=== PATIENT | female | born 1980 | race Caucasian/White ===

== ENCOUNTER → 2017-01-10 | Outpatient (CLI) | payer BC | END | disposition home or self-care (01) | LOC: C.PAPS 11:51 | PROVIDERS: ATTEND Obstetrics & Gynecology | DX: Z01.419 Encounter for gynecological examination (general) (routine) without abnormal findings (principal); R87.615 Unsatisfactory cytologic smear of cervix ==

== ENCOUNTER 2017-12-09 11:48 | Emergency (ER) | payer BC, OTHER ==
[~2017-12-09] VITALS: Ht 154.9 cm; Wt 56.6 kg
[2017-12-09 11:50] VITALS: TEMP 37; Ht 154.9 cm; Wt 56.6 kg
[2017-12-09 12:49] LABS: BASO % 0.2 %; BASO ABS # 0.02 K/uL (0-0.2); EOS % 0.5 %; EOS ABS # 0.04 K/uL (0-0.5); HEMATOCRIT 43.2 % (37-47); HEMOGLOBIN 15.1 g/dL (12.0-16.0); IG# 0.03 K/uL (0.00-0.02); LYMPH % 8.9 %; LYMPH ABS # 0.74 K/uL (1.2-3.4); MEAN CELL VOLUME 93.3 fL (80-100); MEAN CORPUSCULAR HEMOGLOBIN 32.6 pg (25-34); MEAN PLATELET VOLUME 10.4 fL (7.4-10.4); MONO ABS # 0.58 K/uL (0.11-0.59); NEUT ABS # 6.92 K/uL (1.4-6.5); PLATELET COUNT 250 K/uL (130-400); RED CELL DISTRIBUTION WIDTH CV 12.6 % (11.5-14.5); RED CELL DISTRIBUTION WIDTH SD 42.4 fL (36.4-46.3); WHITE BLOOD COUNT 8.33 K/uL (4.8-10.8)
--- NOTE | 2017-12-09 12:54 | DIAGNOSTIC IMAGING REPORT ---
HEAD WITHOUT CONTRAST (CT) CLINICAL HISTORY: 37 years-old Female with dizziness. Acute dizziness TECHNIQUE: Multiple axial CT images of the head were obtained without contrast. A dose lowering technique was utilized adhering to the principles of ALARA. CT DOSE: 537.48 mGy.cm COMPARISON: None. FINDINGS: No acute intracranial hemorrhage, midline shift, intracranial mass, hydrocephalus, territorial ischemia or abnormal extra-axial collection. The calvarium is intact. The paranasal sinuses, mastoid air cells, and middle ear cavities are clear. IMPRESSION: No acute intracranial abnormality. The above report was generated using voice recognition software. It may contain grammatical, syntax or spelling errors. Electronically signed by: Rick Jackson M.D. 12/09/2017 12:53 PM Dictated Date/Time: 12/09/2017 12:51 PM
[2017-12-09 13:17] LABS: CALCIUM 9.5 mg/dl (8.5-10.1); CREATININE 0.98 mg/dl (0.60-1.20); POTASSIUM 3.5 mmol/L (3.5-5.1)
[2017-12-09] MEDS ORDERED: FLUO10CA48 PO (14:05)
[2017-12-09] MEDS ORDERED: FLUT0.15 (14:05)
[2017-12-09] MEDS ORDERED: MONT1TAB3 PO (14:05)
[2017-12-09] MEDS ORDERED: PRENTAB PO (14:05)
[2017-12-09] MEDS ORDERED: CETI5TAB5 PO (14:05)
[2017-12-09 14:20] VITALS: BP 98/60; PULSE 104; O2SAT 96
--- NOTE | 2017-12-10 18:57 | EMERGENCY ROOM VISIT NOTE ---
History First contact with patient: 12:00 Chief Complaint: VERTIGO Stated Complaint: SINUS CONGESTION,DIZZINESS,TIRED Nursing Triage Summary: "I have really bad sinus issues. My ears have been bothering me more than normal. at the gym I got so dizzy I collapsed. I didn't loose consciousness." Recommended to go to ENT by pcp on Sunday. Symptoms for a week include sinus pressure, dizziness, poor appetite, "I just can't do anything." Diagnosed with acute vertigo on Sunday by pcp. History of Present Illness The patient is a 37 year old white female who presents to the Emergency Room with complaints of severe dizziness that began on . She states she was at the gym and was running on the treadmill. She got off the treadmill and became severely dizzy. She did fall. There was no loss of consciousness. She states she then vomited for approximately 1 hour. She denies striking her head. She was seen by her PCP on Sunday for continued dizziness. They did recommend ENT evaluation. She has an appointment this coming week. She was diagnosed with acute vertigo on Sunday by her PCP. She feels as though she has significant sinus pain and pressure. She states her ears have been bothering her more than normal. She notes poor appetite. She feels she cannot get up off the couch without becoming dizzy. She states she had difficulty walking into the ER from the parking lot due to the dizziness. She was prescribed meclizine but has not filled it. No prior history of similar dizziness. She denies any history of thyroid issues. Review of Systems REVIEW OF SYSTEM: HEENT: No visual problems, hearing loss, or tinnitus. There is no difficulty swallowing and no oral lesions are present. LYMPH: No adenopathy. PULMONARY: No cough, shortness of breath, sputum production or hemoptysis. CARDIOVASCULAR: No chest pain, palpitations, shortness of breath or peripheral edema. GASTROINTESTINAL: No diarrhea, constipation, or abdominal pain. GENITOURINARY: No dysuria, frequency, urgency or nocturia. NEUROLOGIC: No weakness, muscle tenderness, epilepsy or history of neurological problems. MUSCULOSKELETAL: No history of joint tenderness/swelling. No history of arthritis or arthralgias. SKIN: No rashes or lesions. PSYCHIATRIC: Positive history of anxiety. ENDOCRINE: No history of diabetes, thyroid disorders, or abnormal hair growth. Past Medical/Surgical History Medical Problems: (1) Anxiety Family History Noncontributory. Parents are living. Social History Smoking Status: Never Smoker Smokeless Tobacco Use: No Alcohol Use: occasionally Marital Status: single Housing Status: lives alone Occupation Status: employed Current/Historical Medications Scheduled Cetirizine Hcl (Zyrtec), 5 MG PO DAILY Montelukast Sodium (Singulair), 1 TAB PO DAILY Vit W/ Ferrous Fumara (Multi ), 1 TAB PO DAILY Miscellaneous Medications Fluoxetine (Prozac), 10 MG PO Fluticasone Propionate (Nasal) (Flonase Allergy Relief) Physical Exam Vital Signs Date Time Temp Pulse Resp B/P (MAP) Pulse Ox O2 Delivery O2 Flow Rate FiO2 12/09/17 14:20 104 18 98/60 96 12/09/17 13:36 103 18 96/58 100 Room Air 12/09/17 11:50 37.0 101 16 108/64 98 Room Air Physical Exam General: Well-developed, well-nourished, young white female, in no acute distress. Sitting on a bed. Alert and oriented. Skin: Warm and dry with good turgor. No rashes or lesions. No ecchymosis or erythema. The patient is not diaphoretic. No abrasions. HEENT: Normocephalic atraumatic. Eyes PERRLA, EOMI. No conjunctiva or scleral injection. Mild nystagmus when looking to the left. No nystagmus when looking to the right. Ears TMs intact bilaterally with good light reflexes. No erythema or bulging. No hemotympanum. Canals are patent. Nares patent bilaterally without turbinate enlargement. No significant drainage. No epistaxis. Oropharynx without erythema or exudate. Uvula midline, oral mucosa moist. No lesions present. Lymphatics are palpated without anterior or posterior chain enlargement or tenderness. Heart: Heart RRR. No MGR. Peripheral pulses are 2+. Lungs: Lungs are clear to auscultation. No crackles rhonchi or wheezing. Good air movement. The patient is able to take a deep breath. Abdomen: Abdomen was inspected, auscultated, and palpated. Bowel sounds present x 4. Soft, nontender to palpation. No hepato-splenomegaly. No masses noted. No rebound. Musculoskeletal: Gross motor function of the upper and lower extremities is intact and unremarkable. No discomfort with palpation over the cervical spine. Neurologic: Cranial nerves II through XII are intact. Gross sensation is intact across the upper and lower extremities by soft touch. Normal finger to nose, normal pronator drift, and normal Romberg. Medical Decision & Procedures ER Provider Diagnostic Interpretation: CT scan imaging of the head was obtained. This was read by radiology is unremarkable. This was reviewed by me. Laboratory Results 12/09/17 12:35 Red Blood Count 4.63, Mean Corpuscular Volume 93.3, Mean Corpuscular Hemoglobin 32.6, Mean Corpuscular Hemoglobin Concent 35.0, Mean Platelet Volume 10.4, Neutrophils (%) (Auto) 83.0, Lymphocytes (%) (Auto) 8.9, Monocytes (%) (Auto) 7.0, Eosinophils (%) (Auto) 0.5, Basophils (%) (Auto) 0.2, Neutrophils # (Auto) 6.92, Lymphocytes # (Auto) 0.74, Monocytes # (Auto) 0.58, Eosinophils # (Auto) 0.04, Basophils # (Auto) 0.02 12/09/17 12:35 Test 12/09/17 12:35 White Blood Count 8.33 K/uL (4.8-10.8) Red Blood Count 4.63 M/uL (4.2-5.4) Hemoglobin 15.1 g/dL (12.0-16.0) Hematocrit 43.2 % (37-47) Mean Corpuscular Volume 93.3 fL (80-100) Mean Corpuscular Hemoglobin 32.6 pg (25-34) Mean Corpuscular Hemoglobin Concent 35.0 g/dl (32-36) Platelet Count 250 K/uL (130-400) Mean Platelet Volume 10.4 fL (7.4-10.4) Neutrophils (%) (Auto) 83.0 % Lymphocytes (%) (Auto) 8.9 % Monocytes (%) (Auto) 7.0 % Eosinophils (%) (Auto) 0.5 % Basophils (%) (Auto) 0.2 % Neutrophils # (Auto) 6.92 K/uL (1.4-6.5) Lymphocytes # (Auto) 0.74 K/uL (1.2-3.4) Monocytes # (Auto) 0.58 K/uL (0.11-0.59) Eosinophils # (Auto) 0.04 K/uL (0-0.5) Basophils # (Auto) 0.02 K/uL (0-0.2) RDW Standard Deviation 42.4 fL (36.4-46.3) RDW Coefficient of Variation 12.6 % (11.5-14.5) Immature Granulocyte % (Auto) 0.4 % Immature Granulocyte # (Auto) 0.03 K/uL (0.00-0.02) Urine Color DK YELLOW Urine Appearance CLOUDY (CLEAR) Urine pH 5.5 (4.5-7.5) Urine Specific [place] 1.027 (1.000-1.030) Urine Protein 1+ (NEG) Urine Glucose (UA) NEG (NEG) Urine Ketones TRACE (NEG) Urine Occult Blood 3+ (NEG) Urine Nitrite NEG (NEG) Urine Bilirubin NEG (NEG) Urine Urobilinogen NEG (NEG) Urine Leukocyte Esterase MODERATE (NEG) Urine WBC (Auto) 10-30 /hpf (0-5) Urine RBC (Auto) 0-4 /hpf (0-4) Urine Hyaline Casts (Auto) 1-5 /lpf (0-5) Urine Epithelial Cells (Auto) >30 /lpf (0-5) Urine Bacteria (Auto) 1+ (NEG) Urine Crystals CALCIUM OXALATE (NONE Urine Pathogenic Casts /lpf (0) Urine Mucus PRESENT (NONE PRSENT) Urine Test NEG (NEG) Anion Gap 9.0 mmol/L (3-11) Est Creatinine Clear Calc Drug Dose 60.4 ml/min Estimated GFR () 86.6 Estimated GFR (Non- 74.7 BUN/Creatinine Ratio 14.0 (10-20) Calcium Level 9.5 mg/dl (8.5-10.1) Thyroid Stimulating Hormone (TSH) 1.030 uIu/ml (0.300-4.500) Free Thyroxine 1.19 ng/dl (0.80-1.60) CBC, PRP, TSH, free T4, and UA were obtained. Urine was also obtained and is negative. TSH and free T4 are normal. CBC is unremarkable. PRP is unremarkable. UA shows trace ketones, moderate leukocyte esterase, greater than 30 epithelials, mucus, and calcium oxalate. ED Course Patient was educated regarding today's findings. Conservative care measures were discussed. IV was established. Labs were obtained. CT scan imaging of the head was obtained. Patient was able to sit up and maintain her balance. She stated she felt a little dizzy but was improved. I did recommend that she obtain the meclizine and start taking it as directed. Follow-up with ENT as scheduled. Return to the ED for any acute worsening of symptoms. Maintain hydration. Avoid any vigorous physical activity until reevaluated by ENT. Medical Decision Possibility of intracranial mass, intracranial bleed, electrolyte abnormality, anemia, infection, inner ear infection, sinus infection, BPV, Mnire's disease , and thyroid disease were considered among others. Medication Reconcilliation Current Medication List: was personally reviewed by me Blood Pressure Screening Patient's blood pressure: Normal blood pressure Impression Primary Impression: Vertigo Departure Information Dispostion Home / Self-Care Condition GOOD Referrals Chico Lowery MD Forms WORK / SCHOOL INSTRUCTIONS, HOME CARE DOCUMENTATION FORM, IMPORTANT VISIT INFORMATION Patient Instructions My [facility] Additional Instructions Follow-up with your ENT as scheduled Fill the Antivert prescription and take it as directed Maintain hydration Avoid vigorous physical exercise until evaluated by ENT Return to the ED for any other concerns
== END 2017-12-09 14:20 | disposition home or self-care (01) ==
LOC: C.EDB 11:49
DX: R42 Dizziness and giddiness (principal); Z86.59 Personal history of other mental and behavioral disorders

== ENCOUNTER 2019-07-03 20:26 | Inpatient (IN) ==
[2019-07-03 21:14] LABS: Appearance Urine Clear (Clear); Bacteria Urine Automated 2+ (Negative); Bilirubin Urine Negative (Negative); Blood Urine Negative (Negative); Color Urine Yellow; Epithelial Cell Urine Auto 20-30 /lpf (0-5); Glucose Urine UA 1+ (Negative); Ketones Urine Negative (Negative); Leukocyte Esterase Urine 1+ (Negative); Nitrite Urine Negative (Negative); Protein Urine Negative (Negative); Specific Gravity Urine 1.019 (1.000-1.030); Urobilinogen Urine Negative (Negative); pH Urine 6.5 (4.5-7.5)
--- NOTE | 2019-07-03 21:19 | Emergency Department Note ---
History of Present Illness General Chief Complaint: Mental Health Evaluation Stated Complaint: DEPRESSION, ANGER ISSUES Time Seen by Provider: 07/03/19 20:41 Source: patient and other (Boyfriend) Mode of arrival: ambulatory Limitations: no limitations History of Present Illness Provider complaint: suicidal ideation and feels depressed Onset (ago): day(s) 3 Duration: constant Relieved By: + none Exacerbated By: + other (Not able to go to work because of the status of her work due to the current coronavirus. (She does not have it. )) Context: + significant life stressor (Patient was recently diagnosed with neurosarcoidosis in April but has had the symptoms for about a year.); no recent alcohol abuse Associated psychiatric symptoms: + depression, + suicidal ideation and + other (Anger, anxiety) Associated symptoms: no headache, no nausea and no syncope Treatments prior to arrival: + none If self harm: + admits thoughts of self harm and + has plan; no has acted on plan, no intentional overdose and no self-inflicted trauma Details of plan: milliner helper traffic Home Medications Home Medications Medication Instructions Recorded Confirmed Type cholecalciferol (vitamin D3) 5,000 unit PO DAILY 09/25/18 07/03/19 History [Vitamin D3] norgestimate-ethinyl estradiol 1 tab PO HS 11/14/18 07/03/19 History mecobalamin (vitamin B12) 1,000 1,000 mcg SL DIRECTED 12/02/18 07/03/19 History mcg disintegrating tablet,sublingual infliximab 100 mg intravenous See Rx Instructions IV ONCE #3 ea 05/29/19 07/03/19 Rx solution escitalopram oxalate 20 mg PO QAM 30 Days #30 tab 06/05/19 07/03/19 Rx hydroxyzine HCl 50 mg PO HS PRN 30 Days #30 tab 06/05/19 07/03/19 Rx prednisone 10 mg tablet 40 mg PO DAILY 06/20/19 07/03/19 History propranolol 20 mg tablet 20 mg PO BID 06/20/19 07/03/19 History pantoprazole 20 mg tablet,delayed 20 mg PO DAILY #30 tab 07/02/19 07/03/19 Rx release calcium carbonate [Calcium 500] 500 mg PO DAILY 07/03/19 07/03/19 History hydroxyzine HCl 25 mg PO DAILY PRN 07/03/19 07/03/19 History omega 9-qph-[id number]-fish oil [Fish Oil] 1 cap PO DAILY 07/03/19 07/03/19 History Allergies Allergy/AdvReac Type Severity Reaction Status Date / Time [facility] AdvReac Unknown Verified 07/03/19 22:12 Past Med/Surg History Medical History Allergic rhinitis (Chronic) Anxiety (Chronic) Benzodiazepine abuse 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 Beliefs That Will Affect Care: None Current Living Situation: Significant Other Feels Safe at Home: Yes Smoking Status: Never smoker Second Hand Exposure: No ; Hx Alcohol Use: Yes Alcohol type: wine Hx Substance Use: No Review of Systems A total of 10 systems reviewed and were otherwise negative Physical Exam Vital Signs Vital Signs - 24 hr 07/03/19 20:27 07/03/19 23:00 Temperature 36.6 C Temperature Source Oral Pulse Rate 82 Pulse Rate [Finger] 75 Respiratory Rate 16 18 Respiratory Effort / Characteristics Non-Labored Spontaneous Non-Labored Spontaneous Respiratory Depth Normal Normal Blood Pressure 119/84 Blood Pressure [Right Arm] 129/87 Blood Pressure Mean 95 Blood Pressure Mean [Right Arm] 101 Pulse Oximetry 98 98 Oxygen Delivery Method Room Air Room Air Sepsis Recent Fever Within 48 Hours No Sepsis New/Unexplained Change in Mental Status No Sepsis Action Taken by Nursing No Action Required CONSTITUTIONAL/VITAL SIGNS: Reviewed / noted above. GENERAL: Non-toxic in appearance. INTEGUMENTARY: Warm, dry, and [place]. HEAD: Normocephalic. EYES: without scleral icterus or trauma. ENT/OROPHARYNX: clear and moist. LYMPHADENOPATHY/NECK: Is supple without lymphadenopathy or meningismus. RESPIRATORY: Lungs clear and equal. CARDIOVASCULAR: Regular rate and rhythm. GI/ABDOMEN: Soft and nontender. No organomegaly or pulsatile mass. No rebound or guarding. Normal bowel sounds. EXTREMITIES: Warm and well perfused. BACK: No CVA tenderness. NEUROLOGICAL: Intact without focal deficits. PSYCHIATRIC: normal affect. Suicidal ideation. MUSCULOSKELETAL: Normally developed with good muscle tone. TRIAGE NURSING DOCUMENTATION REVIEWED. Medical Decision Making Differential Diagnosis + acute psychosis, + suicidal ideation, + depression, + drug-induced psychotic disorder, + anxiety, + mood disorder, + electrolyte abnormalities and + maame rologic Medical Records Attestation: I reviewed the patient's medical records. Home Medications Current Medication List: was personally reviewed by me Laboratory Data Attestation: I reviewed the patient's lab results. Result diagrams: 07/03/19 21:17 07/03/19 21:17 Lab Results 07/03/19 07/03/19 07/03/19 Range/Units 20:57 20:57 21:17 WBC 9.66 (4.8-10.8) K/uL RBC 4.26 (4.2-5.4) M/uL Hgb 13.4 (12.0-16.0) g/dL Hct 40.0 (37-47) % MCV 93.9 (80-100) fL MCH 31.5 (25-34) pg MCHC 33.5 (32-36) g/dL RDW Std Deviation 46.1 (36.4-46.3) fL RDW Coeff of Sharon 13.5 (11.5-14.5) % Plt Count 234 (130-400) K/uL MPV 9.7 (7.4-10.4) fL Immature Gran % (Auto) 0.4 % Neut % (Auto) 79.7 % Lymph % (Auto) 14.2 % Archer % (Auto) 5.5 % Eos % (Auto) 0.0 % Baso % (Auto) 0.2 % Immature Gran # (Auto) 0.04 H (0.00-0.02) K/uL Neut # (Auto) 7.70 H (1.4-6.5) K/uL Lymph # (Auto) 1.37 (1.2-3.4) K/uL Archer # (Auto) 0.53 (0.11-0.59) K/uL Eos # (Auto) 0.00 (0-0.5) K/uL Baso # (Auto) 0.02 (0-0.2) K/uL Sodium (136-145) mmol/L Potassium (3.5-5.1) mmol/L Chloride (98-107) mmol/L Carbon Dioxide (21-32) mmol/L Anion Gap (3-11) BUN (7-18) mg/dl Creatinine (0.6-1.2) mg/dl Est Cr Clr Drug Dosing ml/min Est GFR ( Amer) Est GFR (Non-Af Amer) BUN/Creatinine Ratio (10-20) Glucose (70-99) mg/dl Calcium (8.5-10.1) mg/dl Total Bilirubin (0.2-1) mg/dl AST (15-37) U/L ALT (12-78) U/L Alkaline Phosphatase (45-117) U/L Total Protein (6.4-8.2) gm/dl Albumin (3.4-5.0) gm/dl Globulin (2.5-4.0) gm/dl Albumin/Globulin Ratio (0.9-2) TSH (0.300-4.500) uIu/ml Specimen Hemolysis Urine Color Yellow Urine Appearance Clear (Clear) Urine pH 6.5 (4.5-7.5) Ur Specific [place] 1.019 (1.000-1.030) Urine Protein Negative (Negative) Urine Glucose (UA) 1+ H (Negative) Urine Ketones Negative (Negative) Urine Blood Negative (Negative) Urine Nitrite Negative (Negative) Urine Bilirubin Negative (Negative) Urine Urobilinogen Negative (Negative) Ur Leukocyte Esterase 1+ H (Negative) Urine WBC (Auto) 5-10 H (0-5) /hpf Urine RBC (Auto) 5-10 H (0-4) /hpf U Hyaline Cast (Auto) 1-5 (0-5) /lpf U Epithel Cells (Auto) 20-30 H (0-5) /lpf Urine Bacteria (Auto) 2+ H (Negative) Salicylates (2.8-20) mg/dl Urine Opiates Screen Neg (Neg) Ur Methadone, Qual Neg (Neg) Acetaminophen (10-30) ug/ml Urine Barbiturates Neg (Neg) Ur Phencyclidine (PCP) Neg (Neg) U Amphetamin/Meth Scrn Neg (Neg) MDMA (Ecstasy) Screen Neg (Neg) U Benzodiazepines Scrn Neg (Neg) Ur Cocaine Metabolite Neg (Neg) U Marijuana (THC) Screen Pos H (Neg) Ethyl Alcohol mg/dL (0-3) mg/dl 07/03/19 07/03/19 07/03/19 Range/Units 21:17 21:17 21:17 WBC (4.8-10.8) K/uL RBC (4.2-5.4) M/uL Hgb (12.0-16.0) g/dL Hct (37-47) % MCV (80-100) fL MCH (25-34) pg MCHC (32-36) g/dL RDW Std Deviation (36.4-46.3) fL RDW Coeff of Sharon (11.5-14.5) % Plt Count (130-400) K/uL MPV (7.4-10.4) fL Immature Gran % (Auto) % Neut % (Auto) % Lymph % (Auto) % Archer % (Auto) % Eos % (Auto) % Baso % (Auto) % Immature Gran # (Auto) (0.00-0.02) K/uL Neut # (Auto) (1.4-6.5) K/uL Lymph # (Auto) (1.2-3.4) K/uL Archer # (Auto) (0.11-0.59) K/uL Eos # (Auto) (0-0.5) K/uL Baso # (Auto) (0-0.2) K/uL Sodium 137 (136-145) mmol/L Potassium 4.0 (3.5-5.1) mmol/L Chloride 103 (98-107) mmol/L Carbon Dioxide 27 (21-32) mmol/L Anion Gap 7.0 (3-11) BUN 17 (7-18) mg/dl Creatinine 0.85 (0.6-1.2) mg/dl Est Cr Clr Drug Dosing 76.5 ml/min Est GFR ( Amer) 102.2 Est GFR (Non-Af Amer) 88.2 BUN/Creatinine Ratio 19.9 (10-20) Glucose 128 H (70-99) mg/dl Calcium 9.3 (8.5-10.1) mg/dl Total Bilirubin 0.3 (0.2-1) mg/dl AST 23 (15-37) U/L ALT 47 (12-78) U/L Alkaline Phosphatase 49 (45-117) U/L Total Protein 7.7 (6.4-8.2) gm/dl Albumin 3.7 (3.4-5.0) gm/dl Globulin 4.0 (2.5-4.0) gm/dl Albumin/Globulin Ratio 0.9 (0.9-2) TSH 0.305 (0.300-4.500) uIu/ml Specimen Hemolysis Urine Color Urine Appearance (Clear) Urine pH (4.5-7.5) Ur Specific [place] (1.000-1.030) Urine Protein (Negative) Urine Glucose (UA) (Negative) Urine Ketones (Negative) Urine Blood (Negative) Urine Nitrite (Negative) Urine Bilirubin (Negative) Urine Urobilinogen (Negative) Ur Leukocyte Esterase (Negative) Urine WBC (Auto) (0-5) /hpf Urine RBC (Auto) (0-4) /hpf U Hyaline Cast (Auto) (0-5) /lpf U Epithel Cells (Auto) (0-5) /lpf Urine Bacteria (Auto) (Negative) Salicylates < 1.7 L (2.8-20) mg/dl Urine Opiates Screen (Neg) Ur Methadone, Qual (Neg) Acetaminophen < 2 L (10-30) ug/ml Urine Barbiturates (Neg) Ur Phencyclidine (PCP) (Neg) U Amphetamin/Meth Scrn (Neg) MDMA (Ecstasy) Screen (Neg) U Benzodiazepines Scrn (Neg) Ur Cocaine Metabolite (Neg) U Marijuana (THC) Screen (Neg) Ethyl Alcohol mg/dL < 3.0 (0-3) mg/dl Blood Pressure Blood Pressure Findings: Normal blood pressure MDM Narrative The patient presents with her boyfriend with a chief complaint of 3 days of not feeling herself. She has been having intense anger, anxiety and suicidal thoughts. Today she was crossing the street with her boyfriend and stated that she felt like to standing in the street letting her self get hit by car. The p atient states that she was diagnosed with neurosarcoidosis in April. She has had the symptoms for a year. She was started on Remicade which she takes every 4 weeks and prednisone daily. She has not had any medication changes for over a month. She has been feeling resistant to taking her medications because she feels hopeless. She is sleeping more than usual. The coronavirus quarantine issues have also caused her to become more depressed because she is not able to go to work where she feels like she has good coworkers. Her psychologist suggested she come in for evaluation. She missed an appointment with the mental health services today because she had an MRI scheduled and this was in conflict with her appointment with [facility]. The patient would like to be admitted voluntarily. The patient's laboratory studies including a CBC and complete metabolic panel as well as TSH and talk screen and alcohol were all negative or normal other than a urine tox was positive for marijuana. The patient was accepted to [facility] for admission. Impression & Plan Depression, Suicidal thoughts Discharge Plan Visit Data Chief Complaint: Mental Health Evaluation Stated Complaint: DEPRESSION, ANGER ISSUES ED Provider: Michael Solis Discharge Problem: Depression, Suicidal thoughts Forms Stand Alone Forms: [facility], Suicide Prevention Resources Prescriptions Prescriptions: No Action Remicade 100 mg recon soln See Rx Instructions IV ONCE Qty: 3 RF: 7 pantoprazole [Protonix] 20 mg tablet,delayed release (DR/EC) 20 mg PO DAILY Qty: 30 RF: 5 norgestimate-ethinyl estradiol [Tri Femynor] 0.18/0.215/0.25 mg-35 mcg (28) tablet 1 tab PO HS RF: 0 propranolol 20 mg tablet 20 mg PO BID RF: 0 prednisone 10 mg tablet 40 mg PO DAILY RF: 0 mecobalamin (vitamin B12) 1,000 mcg tablet,disintegrating 1,000 mcg SL DIRECTED RF: 0 cholecalciferol (vitamin D3) [Vitamin D3] 5,000 unit Tablet 5,000 unit PO DAILY RF: 0 escitalopram oxalate 20 mg Tablet 20 mg PO QAM 30 Days Qty: 30 RF: 0 hydroxyzine HCl 50 mg tablet 50 mg PO HS PRN (Reason: insomnia) 30 Days Qty: 30 RF: 0 calcium carbonate [Calcium 500] 500 mg calcium (1,250 mg) Tablet 500 mg PO DAILY RF: 0 hydroxyzine HCl 25 mg Tablet 25 mg PO DAILY PRN (Reason: mood swings) RF: 0 omega 8-[id number]-fish oil [Fish Oil] 1,000 mg (120 mg-180 mg) Capsule 1 cap PO DAILY RF: 0 Discharge Problem: Depression Qualifiers: Depression Type: unspecified Qualified Code(s): F32.9 - Major depressive disorder, single episode, unspecified
[2019-07-03 21:28] LABS: Amphetamines+Metham, Urine Neg (Neg); Barbiturates, Urine Neg (Neg); Benzodiazepine, Urine Neg (Neg); Cocaine, Urine Neg (Neg); MDMA (Ecstacy), Urine Neg (Neg); Methadone, Urine Neg (Neg); Opiate, Urine Neg (Neg); Phencyclidine, Urine Neg (Neg)
[2019-07-03 21:32] LABS: Basophils # (auto) 0.02 K/uL (0-0.2); Basophils % (auto) 0.2 %; Hemoglobin 13.4 g/dL (12.0-16.0); Immature Granulocytes # (auto) 0.04 K/uL (0.00-0.02); Immature Granulocytes % (auto) 0.4 %; Lymphocytes # (auto) 1.37 K/uL (1.2-3.4); Lymphocytes % (auto) 14.2 %; Mean Corpuscular Hemoglobin 31.5 pg (25-34); Mean Corpuscular Hgb Conc 33.5 g/dL (32-36); Mean Corpuscular Volume 93.9 fL (80-100); Mean Platelet Volume 9.7 fL (7.4-10.4); Monocytes # (auto) 0.53 K/uL (0.11-0.59); Monocytes % (auto) 5.5 %; Neutrophils % (auto) 79.7 %; Platelet Count 234 K/uL (130-400); RDW Coefficient of Variation 13.5 % (11.5-14.5); RDW Standard Deviation 46.1 fL (36.4-46.3); Red Blood Count 4.26 M/uL (4.2-5.4); White Blood Count 9.66 K/uL (4.8-10.8)
[2019-07-03 21:49] LABS: Albumin Level 3.7 gm/dl (3.4-5.0); BUN Creatinine Ratio 19.9 (10-20); Calcium 9.3 mg/dl (8.5-10.1); Creatinine Clr Calc Pharmacy 76.5 ml/min; Est GFR (African American) 102.2; Est GFR (Non-African American) 88.2
[2019-07-03 21:56] LABS: Acetaminophen < 2 ug/ml (10-30); Salicylate < 1.7 mg/dl (2.8-20)
[2019-07-03 22:00] LABS: Albumin Globulin Ratio 0.9 (0.9-2); Bilirubin,Total 0.3 mg/dl (0.2-1); Thyroid Stimulating Hormone 0.305 uIu/ml (0.300-4.500); Total Protein 7.7 gm/dl (6.4-8.2)
[2019-07-04 01:37] VITALS: O2SAT 99
[2019-07-04] MEDS ORDERED: ALUMINUM/MAGNESIUM SUSP 30 ML UDC PO PRN (01:46)
[2019-07-04] MEDS ORDERED: BISMUTH SUBSALICYLATE PER ML OMNICELL CHARGE PO PRN (01:46)
[2019-07-04] MEDS ORDERED: MAGNESIUM HYDROXIDE SUSP 30 ML UDC PO PRN (01:46)
[2019-07-04] MEDS ORDERED: ACETAMINOPHEN 325 MG TAB PO PRN (01:46)
[2019-07-04] MEDS ORDERED: SODIUM CHLORIDE 0.65% NA SOLN 45 ML (OCEAN) PRN (01:46)
[2019-07-04] MEDS: PROPRANOLOL HCL 20 MG TAB PO SCH ×3 (02:52→21:32)
[2019-07-04] MEDS: PATIENT'S OWN ORAL CONTRACEPTIVE PO SCH ×2 (06:34→21:37)
--- NOTE | 2019-07-04 08:57 | History & Physical ---
Date of Service July 04, 2019 Impression / Recommendations Impression 38-year-old female admitted voluntarily for inpatient psychiatric treatment due to worsening anxiety, hopelessness, and reported increase in mood instability (anger, irritability) over the past week. Pt admits that her hopelessness has often led to In the context of difficulty coping with a recent neurosarcoidosis diagnosis, she felt she was unsafe outside of the inpatient psychiatric setting to deal with these symptoms on her own. Pt and boyfriend did seek advice from her outpatient providers, who suggested patient present for mental health evaluation. Specifically, patient was encouraged to present to the ED after a scheduled therapy (tele-therapy) appointment the evening of her eventual admission. Pt does believe that a great deal of her heightened anxiety and mood instability is related to recent events concerning the COVID-19 outbreak. 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 Pt has continued escitalopram 20mg and does feel the medication has been effective. She does report recent sexual side effects, but is agreeable with continuing the medication at this time. We discussed treatment options to target decreased libido down the road of these symptoms persist. Pt wishing to continue hydroxyzine as needed for anxiety, and scheduled for sleep. We did discuss the potential to initiate a mood stabilization agent as an adjunct to her antidepressant if irritability and mood instability should persist; however, it was recommended that we wait on this until the pattern of these moods can be better observed - lamotrigine was specifically discussed, would not pursue without reviewing with neurology. At this time, patient denies active SI but is unable to contract for safety outside of the hospital setting - she continues to report severe hopelessness and desire to be . Will focus treatment on therapeutic intervention at present, and work with patient to develop and safe discharge plan. Until this can be accomplished, inpatient psychiatric treatment is the least restrictive and most appropriate setting to work toward these goals. Dr. Deshaun Hi was directly involved in review and discussion of the patient's case and participated in medical decision making regarding treatment recommendations. (1) Suicidal thoughts: 07/03 - Admitted to a locked inpatient behavioral health unit, on q15 minute safety checks - Encourage medication initiation/adjustments as indicated - Encourage participation in group and recreational therapies - Gather collateral information from outpatient providers - Suggest family meeting to involve outpatient supports in safety planning - Arrange appropriate aftercare (2) Anxiety: 07/03 - Pt admits to anxiety, likely significantly exacerbated by concerns surrounding the COVID-19 outbreak and her chronic neurological illness - Pt reporting worsening of anxiety and depression over the last week which has been contributing to hopelessness and passive thoughts - Pt agreeable with this visit offering primarily therapeutic intervention - as she admits that most of her present stressors are situational and have only been occurring for the past week - Will continue escitalopram 20mg daily and prn hydroxyzine; will schedule HS hydroxyzine as patient reports this is how she has been taking it at home - Will encourage attendance of group and recreational programming; encourage 1:1 sessions as desired/indicated to process recent stressors - Discussed need to develop a daily/weekly routine that will help support the patient during this time of working from home - Coordinate with outpatient therapist; confirm [facility] intake for July - pt stating she had to reschedule this appointment due to prioritizing her MRI yesterday - Encourage patient to work on a detailed safety plan - Family meeting to involve outpatient supports in discharge and safety planning (3) Depression: 07/03 - Pt admits to worsening of depressive symptoms and more chronic hopelessness in the last week - see treatment recommendations for "anxiety" as above - Continue escitalopram 20mg daily; pt does report noticeably decreased libido in the past 2-3 weeks - she was asked to continue to monitor - We did discuss her mood fluctuations. Will not plan to initiate a new medication presently, as these changes have only been persisting for the past week. We did discuss the possibility of lamotrigine or alternative mood stabilization agent as an adjunct to her depression treatment regimen if irritability/anger, and mood fluctuations in the setting of her depressive episodes should persist. Would highly recommending coordinating this treatment plan with her neurologist prior to initiating an antiepileptics as a mood stabilizer. - Continue to encourage group and recreational programming, as well as d evelopment of healthy and effective coping strategies Depression Type: major depressive disorder Major depression recurrence: recurrent Major depression episode severity: severe Active/Remission status: currently active Psychotic features: without psychotic features Qualified Code(s): F33.2 - Major depressive disorder, recurrent severe without psychotic features (4) Neurosarcoidosis in adult: 07/03 - Continue current treatment regimen per neurology - prednisone 40mg qAM and infliximab infusions - Progress note from 06/20/2019 neurology visit was reviewed - Pt had MRI of brain on 06/30/2019 and of the orbit on 07/03/2019 - No significant change in brain MRI from prior studies; documented unremarkable MRI of the orbits - Continue to coordinate care with patient's neurologist (5) Essential tremor: 07/03 - Continue propranolol 20mg BID - Most recent neurology progress note indicates patient may take an addit ional 20mg dose once daily as needed for breakthrough tremor Risk Factors Assessment Male: No : Yes Do You Have Access To A Gun?: No Health Problems: Yes Mental Health Diagnoses: Yes Substance Use Disorders: No Previous Psychiatric Hospitalization: Yes Hopelessness: Yes Smoker: No Protective Factors Assessment Evangelical Beliefs: Yes : No Responsible for Young Children: No Employed: Yes ([employer]) Stable Relationships: Yes Supportive Family: Yes Good Rapport with Provider: Yes Psychiatric History Identifying Data RUBA CHOWDARY is a 38-year-old F who currently lives in [place] with her boyfriend. Pt was admitted to our unit from 06/01/2019 - 06/05/2019 for depression/SI with plan to cut her wrists. Pt has a history of recurrent depression, and was admitted on 07/04/19 00:56 on a 201 voluntary commitment for increased anxiety, depression, hopelessness, and reported suicidal ideation. Chief Complaint "I've actually been doing pretty well...until this past week I'd say." History of Present Illness Ruba Chowdary is a 38-year-old female admitted voluntarily for inpatient psychiatric treatment on 07/04/2019 after presenting to the ED upon recommendat ion from her outpatient therapist and several other members of her healthcare team. Patient's boyfriend had actually called our unit the afternoon prior to admission seeking advice, as he stated the patient had been deteriorating and that she was trying to refuse prescribed medications and becoming more agitated and hopeless. Safety recommendations were reviewed with the boyfriend at that time. Pt states that the boyfriend called several of her other providers, who suggested the patient present to the ED for mental health evaluation. Pt did participate in her scheduled therapy session (via tele-therapy) and inpatient admission was suggested at the closing of that session. Pt reported depression and "anger issues" in the ED, admitting to increased hopelessness and suicidality. 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 Pt is cooperative with psychiatric evaluation, and surprisingly states that thing have been going rather well overall for her. She states that, with appropriate treatment, her symptoms related to her diagnosis of neurosarcoidosis have been improving and she has been rather optimistic about her physical health recently. She has been able to go to work several days out of the week, and was otherwise able to be productive working from home. She states that she and her boyfriend have been walking and the patient has been doing regular yoga - noticing a considerable decrease in physical pain. Pt states that all of these improves are only increasing her confusion as to why her mood has been inconsistent recently. Pt states "everything has been going so well, but what I'm experiencing now is anger. I don't know where it is coming from or why." Pt states that she has been getting into more fights with her boyfriend and has been "saying just terrible things to the people I care about, this is so unlike me." While patient admits that a part of her increased anger may be related to chronic steroid treatment, it is beyond her usual level of irritability. In addition, patient reports increased depression and feelings of hopelessness. Pt states her predominant mood is "depression I'd say."" She states that she has rather chronic thoughts of "I just want to ." In discussing with this provider, patient states that her suicidality has been passive - "like I wish I would get run over by a car, or that my boyfriend would stab me." She denies any intent to end her life of her own accord, but has been making statements to her supports of "I want to " and "please just kill me" - which increased their concern as well. Pt states "I feel like a lot of this is a chemical thing, because I have so little control of it." Pt was able to reflect a bit on changes over the past week. She is able to admit that the recent changes to her work schedule, and life in general, since the recent COVID-19 outbreak may be playing a larger role that she initially realized. 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 She states that being out of her routine has contributed to her sleeping more and having less desire to focus on work. The anxiety of her being on chronic immunosuppressants during a virus outbreak has also be contributing to her changes in mood, per her report. Pt does admit that she is hopeful for additional coping skills and would be willing to develop a routine for the period of time both she and her boyfriend will be working from home. Pt continues to maintain that her current mood fluctuations are "not anything I've ever experienced." She continues to deny symptoms more consistent with a bipolar presentation. Pt does admit she is concerned about making significant adjustments to her medications, and feel a therapy-focused visit is most necessary at this time to allow her to feel safe returning home. Past Psychiatric History Current Psychiatric Diagnosis: Depression, Anxiety Outpatient Services: Therapist - Maxx Morrow, Ph.D - has worked with patient for several years now Pt was scheduled for psychiatric medication management through [facility] - evaluation was scheduled for 07/02 - patient rescheduled as this interfered with an MRI Pt has also been following regularly with Dr. Lozano for neurology; has also met with providers at the [facility] for her neurosarcoidosis. Previous Psych Admissions: [facility] - 2014 for depression and [facility] - 05/2019 for depression and SI Do You Have Access To A Gun?: No History of Previous Suicide Attempt: No (ideation, but no attempts) Describe Attempts in the Past: None Past Medication Trials: Per combination of patient reports and previous documentation: 1. Prozac - up to 40mg, several year duration - tapered of during 05/2019 hospitalization 2. Ativan - previous taken prn for anxiety; demonstrated significant overuse 3. Trazodone - for insomnia 4. Lexapro - up to 20mg 5. Vistaril - for anxiety and sleep 6. Keppra - given previously for suspected seizure; worsened mood swings Past Head Trauma/Neuro History History of Concussion/Seizure: No Per 05/2019 H&P: Reports while at [employer] "they thought I had a seizure, but the EEG said I didn't." Allergies Allergy/AdvReac Type Severity Reaction Status Date / Time levetiracetam [From Keppra] AdvReac Unknown Verified 07/03/19 22:12 Home Medications Home Medications Medication Instructions Recorded Confirmed Type cholecalciferol (vitamin D3) 5,000 unit PO DAILY 09/25/18 07/03/19 History [Vitamin D3] norgestimate-ethinyl estradiol 1 tab PO HS 11/14/18 07/03/19 History mecobalamin (vitamin B12) 1,000 1,000 mcg SL DIRECTED 12/02/18 07/03/19 History mcg disintegrating tablet,sublingual infliximab 100 mg intravenous See Rx Instructions IV ONCE #3 ea 05/29/19 07/04/19 Rx solution escitalopram oxalate 20 mg PO QAM 30 Days #30 tab 06/05/19 07/03/19 Rx hydroxyzine HCl 50 mg PO HS PRN 30 Days #30 tab 06/05/19 07/03/19 Rx prednisone 10 mg tablet 40 mg PO DAILY 06/20/19 07/03/19 History propranolol 20 mg tablet 20 mg PO BID 06/20/19 07/03/19 History pantoprazole 20 mg tablet,delayed 20 mg PO DAILY #30 tab 07/02/19 07/03/19 Rx release calcium carbonate [Calcium 500] 500 mg PO DAILY 07/03/19 07/03/19 History hydroxyzine HCl 25 mg PO DAILY PRN 07/03/19 07/03/19 History omega 7-myy-eih-fish oil [Fish Oil] 1 cap PO DAILY 07/03/19 07/03/19 History Family History Family History of: Depression and Anxiety Family Mental Health History Comment: Mother Alcohol History Hx of Alcohol Use Over the Past 12 Months: No AUDIT Total Score: 0 Smoking Use Smoking Status: Never smoker Substance History Hx of Prescription Med Misuse Over the Past 12 Months: No Hx of Over the Counter Med Misuse Over the Past 12 Months: No Hx of Inhalent Misuse Over the Past 12 Months: No Hx of Organic Substance Use Over the Past 12 Months: Yes (Prescribed medical marijuana) Hx of Illegal Substances/Street Drug Use Over Past 12 Months: No Problems as a Result of Past Substance Use: None Identified Pt denies tobacco use. She denies alcohol consumption. Pt does admit to being certified for "medicinal marijuana" has reduced use to every other day, now using capsules instead of smoking. Pt with previous benzodiazepine overuse (prescribed, but taking excessively) - has not utilized benzodiazepines since her admission in 05/2019. Denies use of illicit substances. 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 Father Myocardial infarction Sinus disorder Mother Allergic rhinitis Sinus disorder Brother Allergic rhinitis Grandfather Cardiac disorder Grandfather Colon cancer Aunt Breast cancer paternal great aunt Family/Other Breast cancer maternal second cousin Denies family history of Ovarian cancer Social History Preferred Language: Algerian Communication Ability: Effective Visual Impairment: No Limitations Hearing Ability: Normal Spanish Speaking Babysitter Required: No Beliefs That Will Affect Care: Spiritual Current Living Situation: Significant Other Feels Safe at Home: Yes Smoking Status: Never smoker Second Hand Exposure: No ; Hx Alcohol Use: Yes Alcohol type: wine Hx Substance Use: No Review of Systems Review of Systems: Constitutional: reports fatigue HEENT: reports feeling as though her vision is "darker", denies blurry or double vision Cardiovascular: denied Respiratory: denied Gastrointestinal: denied Neurological: reports occasional tremor; does believe thoughts are more clear Psychiatric: denies symptoms other than stated above Total of at least 10 systems reviewed, pertinent positives as above and in HPI. Physical Exam Psychiatric: Orientation: alert, oriented x 3 and cooperative (and pleasant) Apperance: appropriately dressed and appeared stated age female of short-stature, healthy appearing weight - seated in no acute distress. Pt is casually dressed, wearing a printed hoodie, leggings, and slippers. Wearing floral print corrective lenses. While hygiene appears adequate, her hair is unkempt at time of encounter. Eye Contact: good eye contact Motor Behavior: steady gait and station and no abnormal motor movements Speech: normal rate/rhythm/volume of speech Affect: + anxious affect and mood congruent with affect Mood: + depressed mood ("My predominant mood? I would say depressed") and + anxious mood Thought Process: goal directed thought process, clear/coherent thought process and thought association intact Thought Content: reality based without delusions, + hopelessness, + guilt and + self deprecation Suicidal Thoughts: denies suicidal plan and denies suicidal intent; + reports suicidal thoughts (admits "I just want to ") Pt does admit several times, "I want to " or "I don't want to wake up" - she admits that these thoughts have been passive in nature, denying acts of furtherance or consideration of a specific plan. She denies intent, even stating she is concerned about dying at the hands of the COVID-19 virus. Homicidal Thoughts: denies homicidal thoughts Hallucinations: no auditory hallucinations and no visual hallucinations Cognition: remote memory grossly intact, attention grossly intact and language grossly intact Insight: + fair insight Judgement: + fair judgement Vital Signs (Past 24 Hours): Last Vital Signs Temp 36.7 C 07/04/19 06:30 Pulse 101 H 07/04/19 06:31 Resp 18 07/04/19 06:30 BP 128/86 07/04/19 06:31 Pulse Ox 99 07/04/19 01:36 Exam Statement: A physical exam was performed in the ER prior to admission to the unit by Dr. Michael Solis DO. I accept that physical as correct/medical clearance for the inpatient physical exam. Results & Data ([facility]) Laboratory Results Laboratory Results - last 24 hr 07/03/19 07/03/19 07/03/19 20:57 20:57 20:57 WBC RBC Hgb Hct MCV MCH MCHC RDW Std Deviation RDW Coeff of Sharon Plt Count MPV Immature Gran % (Auto) Neut % (Auto) Lymph % (Auto) [place] % (Auto) Eos % (Auto) Baso % (Auto) Immature Gran # (Auto) Neut # (Auto) Lymph # (Auto) [place] # (Auto) Eos # (Auto) Baso # (Auto) Sodium Potassium Chloride Carbon Dioxide Anion Gap BUN Creatinine Est Cr Clr Drug Dosing Est GFR ( Amer) Est GFR (Non-Af Amer) BUN/Creatinine Ratio Glucose Calcium Total Bilirubin AST ALT Alkaline Phosphatase Total Protein Albumin Globulin Albumin/Globulin Ratio TSH Specimen Hemolysis Urine Color Yellow Urine Appearance Clear Urine pH 6.5 Ur Specific [place] 1.019 Urine Protein Negative Urine Glucose (UA) 1+ H Urine Ketones Negative Urine Blood Negative Urine Nitrite Negative Urine Bilirubin Negative Urine Urobilinogen Negative Ur Leukocyte Esterase 1+ H Urine WBC (Auto) 5-10 H Urine RBC (Auto) 5-10 H U Hyaline Cast (Auto) 1-5 U Epithel Cells (Auto) 20-30 H Urine Bacteria (Auto) 2+ H Salicylates Urine Opiates Screen Neg Ur Methadone, Qual Neg Acetaminophen Urine Barbiturates Neg Ur Phencyclidine (PCP) Neg U Amphetamin/Meth Scrn Neg MDMA (Ecstasy) Screen Neg U Benzodiazepines Scrn Neg Ur Cocaine Metabolite Neg U Marijuana (THC) Screen Pos H U Marijuana THC Carboxy Pending Drug Screen Comment Pending Ethyl Alcohol mg/dL 07/03/19 07/03/19 07/03/19 21:17 21:17 21:17 WBC 9.66 RBC 4.26 Hgb 13.4 Hct 40.0 MCV 93.9 MCH 31.5 MCHC 33.5 RDW Std Deviation 46.1 RDW Coeff of Sharon 13.5 Plt Count 234 MPV 9.7 Immature Gran % (Auto) 0.4 Neut % (Auto) 79.7 Lymph % (Auto) 14.2 [place] % (Auto) 5.5 Eos % (Auto) 0.0 Baso % (Auto) 0.2 Immature Gran # (Auto) 0.04 H Neut # (Auto) 7.70 H Lymph # (Auto) 1.37 [place] # (Auto) 0.53 Eos # (Auto) 0.00 Baso # (Auto) 0.02 Sodium 137 Potassium 4.0 Chloride 103 Carbon Dioxide 27 Anion Gap 7.0 BUN 17 Creatinine 0.85 Est Cr Clr Drug Dosing 76.5 Est GFR ( Amer) 102.2 Est GFR (Non-Af Amer) 88.2 BUN/Creatinine Ratio 19.9 Glucose 128 H Calcium 9.3 Total Bilirubin 0.3 AST 23 ALT 47 Alkaline Phosphatase 49 Total Protein 7.7 Albumin 3.7 Globulin 4.0 Albumin/Globulin Ratio 0.9 TSH 0.305 Specimen Hemolysis Urine Color Urine Appearance Urine pH Ur Specific [place] Urine Protein Urine Glucose (UA) Urine Ketones Urine Blood Urine Nitrite Urine Bilirubin Urine Urobilinogen Ur Leukocyte Esterase Urine WBC (Auto) Urine RBC (Auto) U Hyaline Cast (Auto) U Epithel Cells (Auto) Urine Bacteria (Auto) Salicylates < 1.7 L Urine Opiates Screen Ur Methadone, Qual Acetaminophen < 2 L Urine Barbiturates Ur Phencyclidine (PCP) U Amphetamin/Meth Scrn MDMA (Ecstasy) Screen U Benzodiazepines Scrn Ur Cocaine Metabolite U Marijuana (THC) Screen U Marijuana THC Carboxy Drug Screen Comment Ethyl Alcohol mg/dL 07/03/19 21:17 WBC RBC Hgb Hct MCV MCH MCHC RDW Std Deviation RDW Coeff of Sharon Plt Count MPV Immature Gran % (Auto) Neut % (Auto) Lymph % (Auto) [place] % (Auto) Eos % (Auto) Baso % (Auto) Immature Gran # (Auto) Neut # (Auto) Lymph # (Auto) [place] # (Auto) Eos # (Auto) Baso # (Auto) Sodium Potassium Chloride Carbon Dioxide Anion Gap BUN Creatinine Est Cr Clr Drug Dosing Est GFR ( Amer) Est GFR (Non-Af Amer) BUN/Creatinine Ratio Glucose Calcium Total Bilirubin AST ALT Alkaline Phosphatase Total Protein Albumin Globulin Albumin/Globulin Ratio TSH Specimen Hemolysis Urine Color Urine Appearance Urine pH Ur Specific [place] Urine Protein Urine Glucose (UA) Urine Ketones Urine Blood Urine Nitrite Urine Bilirubin Urine Urobilinogen Ur Leukocyte Esterase Urine WBC (Auto) Urine RBC (Auto) U Hyaline Cast (Auto) U Epithel Cells (Auto) Urine Bacteria (Auto) Salicylates Urine Opiates Screen Ur Methadone, Qual Acetaminophen Urine Barbiturates Ur Phencyclidine (PCP) U Amphetamin/Meth Scrn MDMA (Ecstasy) Screen U Benzodiazepines Scrn Ur Cocaine Metabolite U Marijuana (THC) Screen U Marijuana THC Carboxy Drug Screen Comment Ethyl Alcohol mg/dL < 3.0 Current Inpatient Medications Current Inpatient Medications: Current Inpatient Medications Acetaminophen (Tylenol) 650 mg PO Q4H PRN PRN Reason: Headache or Minor Fever Stop: 08/03/19 01:45 Al Hydrox/Mg Hydrox/Simethicone (Maalox) 30 ml PO Q4H PRN PRN Reason: GI Upset Stop: 08/03/19 01:45 Bismuth Subsalicylate (Kaopectate) 15 ml PO PRN PRN PRN Reason: Loose Stool Stop: 08/03/19 01:45 Hydroxyzine HCl (Vistaril) 50 mg PO HSZ PRN PRN Reason: Insomnia Stop: 08/03/19 01:45 Hydroxyzine HCl (Vistaril) 25 mg PO Q4H PRN PRN Reason: Anxiety Stop: 08/03/19 01:45 Magnesium Hydroxide (Milk Of Magnesia) 30 ml PO DAILY PRN PRN Reason: Constipation Stop: 08/03/19 01:45 Miscellaneous (Patient's Own Oral Contraceptive) 1 ea PO HS GIOVANA Stop: 08/03/19 21:59 Last Admin: 07/04/19 06:34 Dose: 1 ea Documented by: Non-Formulary Medication (Non-Formulary Patient's Own Med) 2 ea OP BID PRN PRN Reason: Dryness Stop: 08/03/19 08:59 Propranolol HCl (Inderal) 20 mg PO BID GIOVANA Stop: 08/03/19 02:18 Last Admin: 07/04/19 06:34 Dose: 20 mg Documented by: Sodium Chloride ([place] Nasal) 1 - 2 sprays NA PRN PRN PRN Reason: Nasal Dryness/Congestion Stop: 08/03/19 01:45
[2019-07-04] MEDS ORDERED: PROPRANOLOL HCL 20 MG TAB PO SCH (09:00)
[2019-07-04] MEDS ORDERED: CYANOCOBALAMIN 500 MCG TABLET (VITAMIN B-12) PO PRN (10:17)
[2019-07-04] MEDS: PANTOprazole 40 MG TAB PO SCH (12:00)
[2019-07-04] MEDS: ESCITALOPRAM OXALATE 20 MG TAB PO SCH (12:00)
[2019-07-04] MEDS: CALCIUM CARBONATE 1250MG TAB PO SCH (12:00)
[2019-07-04] MEDS: predniSONE 20 MG TAB PO SCH (12:45)
[2019-07-04] MEDS: NON-FORMULARY PATIENT'S OWN MED OP PRN ×2 (14:52→18:59)
[2019-07-05] MEDS: predniSONE 20 MG TAB PO SCH (08:42)
[2019-07-05] MEDS: CHOLECALCIFEROL 1,000 UNITS 25 MCG TAB PO SCH (08:43)
[2019-07-05] MEDS: ESCITALOPRAM OXALATE 20 MG TAB PO SCH (08:43)
[2019-07-05] MEDS: PROPRANOLOL HCL 20 MG TAB PO SCH ×2 (08:43→21:36)
[2019-07-05] MEDS: OMEGA-3 (PURIFIED FISH OIL) 1 GM CAP PO SCH (08:43)
[2019-07-05] MEDS: PANTOprazole 40 MG TAB PO SCH (08:44)
[2019-07-05] MEDS: CALCIUM CARBONATE 1250MG TAB PO SCH (08:45)
--- NOTE | 2019-07-05 10:45 | Psychiatric Progress Note ---
Date of Service July 05, 2019 Impression / Recommendations Impression 38-year-old female admitted voluntarily for inpatient psychiatric treatment due worsening mood and SI in the context of neurosarcoidosis diagnosis and chronic prednisone rx--improving in the structure of the unit. Note any italics in plan were reviewed from previous provider. Risk factors assessment also reviewed/unchanged from admission. (1) Suicidal thoughts: 07/03 - Admitted to a locked inpatient behavioral health unit, on q15 minute safety checks - Encourage medication initiation/adjustments as indicated - Encourage participation in group and recreational therapies - Gather collateral information from outpatient providers - Suggest family meeting to involve outpatient supports in safety planning - Arrange appropriate aftercare 07/04--thoughts lessening, continue 15 min checks (2) Anxiety: 07/03 - Pt admits to anxiety, likely significantly exacerbated by concerns surro unding the COVID-19 outbreak and her chronic neurological illness - Pt reporting worsening of anxiety and depression over the last week which has been contributing to hopelessness and passive thoughts - Pt agreeable with this visit offering primarily therapeutic intervention - as she admits that most of her present stressors are situational and have only been occurring for the past week - Will continue escitalopram 20mg daily and prn hydroxyzine; will schedule HS hydroxyzine as patient reports this is how she has been taking it at home - Will encourage attendance of group and recreational programming; encourage 1:1 sessions as desired/indicated to process recent stressors - Discussed need to develop a daily/weekly routine that will help support the patient during this time of working from home - Coordinate with outpatient therapist; confirm [place] intake for July - pt stating she had to reschedule this appointment due to prioritizing her MRI yesterday - Encourage patient to work on a detailed safety plan - Family meeting to involve outpatient supports in discharge and safety planning (3) Depression: 07/03 - Pt admits to worsening of depressive symptoms and more chronic hopelessness in the last week - see treatment recommendations for "anxiety" as above - Continue escitalopram 20mg daily; pt does report noticeably decreased libido in the past 2-3 weeks - she was asked to continue to monitor - We did discuss her mood fluctuations. Will not plan to initiate a new medication presently, as these changes have only been persisting for the past week. We did discuss the possibility of lamotrigine or alternative mood stabilization agent as an adjunct to her depression treatment regimen if irritability/anger, and mood fluctuations in the setting of her depressive episodes should persist. Would highly recommending coordinating this treatment plan with her neurologist prior to initiating an antiepileptics as a mood stabilizer. 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 (5) Essential tremor: 07/03 - Continue propranolol 20mg BID - Most recent neurology progress note indicates patient may take an additional 20mg dose once daily as needed for breakthrough tremor Risk Factors Assessment Male: No : Yes Do You Have Access To A Gun?: No Health Problems: Yes Mental Health Diagnoses: Yes Substance Use Disorders: No Previous Psychiatric Hospitalization: Yes Hopelessness: Yes Smoker: No Protective Factors Assessment Bahai Beliefs: Yes : No Responsible for Young Children: No Employed: Yes ([employer]) Stable Relationships: Yes Supportive Family: Yes Good Rapport with Provider: Yes Interval History Chief Complaint "I just get overwhelmed not knowing what is what and couldn't get out of my rut". Review of Systems Sleep Information Total Hours of Sleep: 6.5 Meal Information Percent Meal Consumed - Breakfast: 95 Percent Meal Consumed - Lunch: 100 Percent Meal Consumed - Dinner: 100 Subjective Subjective Patient was seen & assessed and interval progress reviewed with nursing and social work. Reports that after a week of attempting to go back to work/increase activity she then spent extra time sleeping and in bed. This created some conflict with her partner as she was refusing to do things/get up/even take her medication at times. Confirmed that she has typical precautions given Remicade infusions with [facility] and chronic steroid use. She is unsure how much of her irritability, reactivity, attention concerns are related to her neurologic condition vs chronic steroid use. 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 Physical Exam Psychiatric Orientation: alert, oriented x 3 and cooperative Apperance: appropriately dressed and appropriately groomed; + did not appear stated age younger with slight villanueva facies Eye Contact: good eye contact Motor Behavior: no abnormal motor movements Speech: normal rate/rhythm/volume of speech Affect: euthymic affect Mood: + depressed mood and + anxious mood Thought Process: linear/logical thought process Thought Content: reality based without delusions Suicidal Thoughts: denies suicidal thoughts Homicidal Thoughts: denies homicidal thoughts Hallucinations: no auditory hallucinations and no visual hallucinations Cognition: language grossly intact Estimated Intelligence: average estimated intelligence Insight: + limited insight Judgement: + limited judgement Vital Signs (Past 24 Hours) Last Vital Signs Temp 36.6 C 07/05/19 06:46 Pulse 80 07/05/19 06:47 Resp 16 07/05/19 06:46 BP 117/83 07/05/19 06:47 Pulse Ox 99 07/04/19 01:36 Results & Data ([facility]) Current Inpatient Medications Current Inpatient Medications: Current Inpatient Medications Acetaminophen (Tylenol) 650 mg PO Q4H PRN PRN Reason: Headache or Minor Fever Stop: 08/03/19 01:45 Al Hydrox/Mg Hydrox/Simethicone (Maalox) 30 ml PO Q4H PRN PRN Reason: GI Upset Stop: 08/03/19 01:45 Bismuth Subsalicylate (Kaopectate) 15 ml PO PRN PRN PRN Reason: Loose Stool Stop: 08/03/19 01:45 Calcium Carbonate (Os-Deion 500) 1,250 mg PO DAILY GIOVANA Stop: 08/03/19 09:44 Last Admin: 07/05/19 08:45 Dose: 1,250 mg Documented by: Cyanocobalamin (Vitamin B-12) 1,000 mcg PO DAILY PRN PRN Reason: PATIENT REQUEST Stop: 08/03/19 10:16 Escitalopram Oxalate (Lexapro Tab) 20 mg PO QAM GIOVANA Stop: 08/03/19 09:44 Last Admin: 07/05/19 08:43 Dose: 20 mg Documented by: Fish Oil ([place]-3 (Purified Fish Oil)) 1 gm PO DAILY GIOVANA Stop: 08/04/19 08:59 Last Admin: 07/05/19 08:43 Dose: 1 gm Documented by: Hydroxyzine HCl (Vistaril) 50 mg PO HSZ PRN PRN Reason: Insomnia Stop: 08/03/19 01:45 Last Admin: 07/04/19 21:35 Dose: 50 mg Documented by: Hydroxyzine HCl (Vistaril) 25 mg PO Q4H PRN PRN Reason: Anxiety Stop: 08/03/19 01:45 Magnesium Hydroxide (Milk Of Magnesia) 30 ml PO DAILY PRN PRN Reason: Constipation Stop: 08/03/19 01:45 Miscellaneous (Patient's Own Oral Contraceptive) 1 ea PO HS GIOVANA Stop: 08/03/19 21:59 Last Admin: 07/04/19 21:37 Dose: 1 ea Documented by: Non-Formulary Medication (Non-Formulary Patient's Own Med) 2 ea OP BID PRN PRN Reason: Dryness Stop: 08/03/19 08:59 Last Admin: 07/04/19 18:59 Dose: 2 ea Documented by: Pantoprazole Sodium (Protonix) 40 mg PO DAILY GIOVANA Stop: 08/03/19 09:44 Last Admin: 07/05/19 08:44 Dose: 40 mg Documented by: Prednisone (Prednisone) 40 mg PO DAILY@0730 GIOVANA Stop: 08/04/19 07:29 Last Admin: 07/05/19 08:42 Dose: 40 mg Documented by: Propranolol HCl (Inderal) 20 mg PO BID GIOVANA Stop: 08/03/19 02:18 Last Admin: 07/05/19 08:43 Dose: 20 mg Documented by: Sodium Chloride ([place] Nasal) 1 - 2 sprays NA PRN PRN PRN Reason: Nasal Dryness/Congestion Stop: 08/03/19 01:45 Vitamin D (Vitamin D3) 5,000 units PO DAILY GIOVANA Stop: 08/04/19 08:59 Last Admin: 07/05/19 08:43 Dose: 5,000 units Documented by: Mental Health & Subst Abuse Tx Psychiatrist Name of Psychiatrist: Ravindra Cruz Psychiatrist's Date of Appointment with Psychiatrist: 07/28/19 Time of Appointment with Psychiatrist: 9:30 a.m. Psychiatric Appointment Comment: [id number] [facility] Therapist Name of Therapist: Dr. Mavis Damico Therapist's Date of Therapist Appointment: 07/09/19 Time of Therapist Appointment: 6:30 p.m. (Able to give you a sooner appt than y our normal standing) Therapy Appointment Comment: Teletherapy Returns Supervisor Name of Returns Supervisor: . Post Discharge Appointments Primary Care Physician Name Of Family Doctor: [facility] - Dr. Garcia Primary Care Date of Appointment with PCP: 08/06/19 Time of Appointment with PCP: 2:10 p.m. Provider Appointment Comment: [address] [facility], [address], [place] Neurolog[facility] Neurologist's Date of Appointment with Neurologist: 08/12/19 Time of Appointment with Neurologist: 2:30 p.m. Neurology Appointment Comment: [address] [facility] Contact Information Discharge Discharge Address: [address] [place] [address], [place] [address] (1) Depression Active/Remission status: currently active Depression Type: major depressive disorder Major depression episode severity: severe Major depression recurrence: recurrent Psychotic features: without psychotic features Qualified Code(s): F33.2 - Major depressive disorder, recurrent severe without psychotic features
[2019-07-05] MEDS: PATIENT'S OWN ORAL CONTRACEPTIVE PO SCH (21:35)
[2019-07-05 22:39] LABS: Marijuana Quant, GCMS Urine 41 ng/mL (<5)
[2019-07-06] MEDS: PROPRANOLOL HCL 20 MG TAB PO SCH ×2 (08:21→21:35)
[2019-07-06] MEDS: predniSONE 20 MG TAB PO SCH (08:21)
[2019-07-06] MEDS: CALCIUM CARBONATE 1250MG TAB PO SCH (08:22)
[2019-07-06] MEDS: OMEGA-3 (PURIFIED FISH OIL) 1 GM CAP PO SCH (08:22)
[2019-07-06] MEDS: ESCITALOPRAM OXALATE 20 MG TAB PO SCH (08:22)
[2019-07-06] MEDS: CHOLECALCIFEROL 1,000 UNITS 25 MCG TAB PO SCH (08:23)
[2019-07-06] MEDS: PANTOprazole 40 MG TAB PO SCH (08:23)
--- NOTE | 2019-07-06 09:12 | Psychiatric Progress Note ---
Date of Service July 06, 2019 Impression / Recommendations Impression 38-year-old female admitted voluntarily for inpatient psychiatric treatment due worsening mood and SI in the context of neurosarcoidosis diagnosis and chronic prednisone rx--still improving in the structure of the unit. Note any italics in plan were reviewed from previous provider/day. Risk factors assessment also reviewed/unchanged from admission. (1) Suicidal thoughts: 07/03 - Admitted to a locked inpatient behavioral health unit, on q15 minute safety checks - Encourage medication initiation/adjustments as indicated - Encourage participation in group and recreational therapies - Gather collateral information from outpatient providers - Suggest family meeting to involve outpatient supports in safety planning - Arrange appropriate aftercare 07/04--thoughts lessening, continue 15 min checks (2) Anxiety: 07/03 - Pt admits to anxiety, likely significantly exacerbated by concerns surroun ding the COVID-19 outbreak and her chronic neurological illness - Pt reporting worsening of anxiety and depression over the last week which has been contributing to hopelessness and passive thoughts - Pt agreeable with this visit offering primarily therapeutic intervention - as she admits that most of her present stressors are situational and have only been occurring for the past week - Will continue escitalopram 20mg daily and prn hydroxyzine; will schedule HS hydroxyzine as patient reports this is how she has been taking it at home - Will encourage attendance of group and recreational programming; encourage 1:1 sessions as desired/indicated to process recent stressors - Discussed need to develop a daily/weekly routine that will help support the patient during this time of working from home - Coordinate with outpatient therapist; confirm [place] intake for July - pt stating she had to reschedule this appointment due to prioritizing her MRI yesterday - Encourage patient to work on a detailed safety plan - Family meeting to involve outpatient supports in discharge and safety planning 07/05--discussed need to determine work schedule or time off as part of safety plan (3) Depression: 07/03 - Pt admits to worsening of depressive symptoms and more chronic hopelessness in the last week - see treatment recommendations for "anxiety" as above - Continue escitalopram 20mg daily; pt does report noticeably decreased libido in the past 2-3 weeks - she was asked to continue to monitor - We did discuss her mood fluctuations. Will not plan to initiate a new medication presently, as these changes have only been persisting for the past week. We did discuss the possibility of lamotrigine or alternative mood stabilization agent as an adjunct to her depression treatment regimen if irritability/anger, and mood fluctuations in the setting of her depressive episodes should persist. Would highly recommending coordinating this treatment plan with her neurologist prior to initiating an antiepileptics as a mood stabilizer. - Continue to encourage group and recreational programming, as well as development of healthy and effective coping strategies 07/05--mood shifts and low mood as well as several somatic complaints seem related to peak of steroid dosing for day. Suggested possible trial of split dosing. Will give 20 mg Prednisone in am and have rounder for 07/06 reassess. (4) Neurosarcoidosis in adult: 07/03 - Continue current treatment regimen per neurology - prednisone 40mg qAM and infliximab infusions - Progress note from 06/20/2019 neurology visit was reviewed - Pt had MRI of brain on 06/30/2019 and of the orbit on 07/03/2019 - No significant change in brain MRI from prior studies; documented unremarkable MRI of the orbits - Continue to coordinate care with patient's neurologist 07/04 --discussed frontal lobe function in regulating attention and emotional reacitivity. (5) Essential tremor: 07/03 - Continue propranolol 20mg BID - Most recent neurology progress note indicates patient may take an additional 20mg dose once daily as needed for breakthrough tremor (6) UTI (urinary tract infection): UC grew enterococcus senstitive to cipro and other agents, agreed to 250 mg bidX3 days when confirmed allergies. Confirmed LMP early June, urine preg added as generally done on admission. Risk Factors Assessment Male: No : Yes Do You Have Access To A Gun?: No Health Problems: Yes Mental Health Diagnoses: Yes Substance Use Disorders: No Previous Psychiatric Hospitalization: Yes Hopelessness: Yes Smoker: No Protective Factors Assessment Sabianist Beliefs: Yes : No Responsible for Young Children: No Employed: Yes ([employer]) Stable Relationships: Yes Supportive Family: Yes Good Rapport with Provider: Yes Interval History Chief Complaint "so it's looks like it's cloudy, that's alot to deal with". Review of Systems Sleep Information Total Hours of Sleep: 6.25 Sleep Comments: Patient was a night time admission arriving to the U at 0141. Meal Information Percent Meal Consumed - Breakfast: 95 Percent Meal Consumed - Lunch: 100 Percent Meal Consumed - Dinner: 100 Subjective Subjective Patient was seen & assessed and interval progress reviewed with nursing and social work, had family session with boyfriend by phone. States that work is important to her identity but also overwhelming and even prior to her hospitalization she was looking into short term disability. She reported some dysuria to staff and reviewed previous us. Physical Exam Psychiatric Orientation: alert Apperance: appropriately groomed Eye Contact: good eye contact Motor Behavior: steady gait and station Speech: normal rate/rhythm/volume of speech Affect: + depressed affect Mood: + anxious mood Thought Process: linear/logical thought process Thought Content: reality based without delusions Suicidal Thoughts: denies suicidal thoughts Homicidal Thoughts: denies homicidal thoughts Hallucinations: no auditory hallucinations and no visual hallucinations Cognition: attention grossly intact and language grossly intact Estimated Intelligence: consistent with education level Insight: + limited insight Judgement: + limited judgement Vital Signs (Past 24 Hours) Last Vital Signs Temp 36.7 C 07/06/19 06:43 Pulse 84 07/06/19 06:45 Resp 16 07/06/19 06:43 BP 117/83 07/06/19 06:45 Pulse Ox 99 07/04/19 01:36 Results & Data ([facility]) Laboratory Results Laboratory Results - last 24 hr 07/03/19 20:57 U Marijuana THC Carboxy 41 H Drug Screen Comment SEE NOTE Current Inpatient Medications Current Inpatient Medications: Current Inpatient Medications Acetaminophen (Tylenol) 650 mg PO Q4H PRN PRN Reason: Headache or Minor Fever Stop: 08/03/19 01:45 Al Hydrox/Mg Hydrox/Simethicone (Maalox) 30 ml PO Q4H PRN PRN Reason: GI Upset Stop: 08/03/19 01:45 Bismuth Subsalicylate (Kaopectate) 15 ml PO PRN PRN PRN Reason: Loose Stool Stop: 08/03/19 01:45 Calcium Carbonate (Os-Deion 500) 1,250 mg PO DAILY GIOVANA Stop: 08/03/19 09:44 Last Admin: 07/06/19 08:22 Dose: 1,250 mg Documented by: Cyanocobalamin (Vitamin B-12) 1,000 mcg PO DAILY PRN PRN Reason: PATIENT REQUEST Stop: 08/03/19 10:16 Escitalopram Oxalate (Lexapro Tab) 20 mg PO QAM GIOVANA Stop: 08/03/19 09:44 Last Admin: 07/06/19 08:22 Dose: 20 mg Documented by: Fish Oil ([place]-3 (Purified Fish Oil)) 1 gm PO DAILY GIOVANA Stop: 08/04/19 08:59 Last Admin: 07/06/19 08:22 Dose: 1 gm Documented by: Hydroxyzine HCl (Vistaril) 50 mg PO HSZ PRN PRN Reason: Insomnia Stop: 08/03/19 01:45 Last Admin: 07/05/19 21:37 Dose: 50 mg Documented by: Hydroxyzine HCl (Vistaril) 25 mg PO Q4H PRN PRN Reason: Anxiety Stop: 08/03/19 01:45 Magnesium Hydroxide (Milk Of Magnesia) 30 ml PO DAILY PRN PRN Reason: Constipation Stop: 08/03/19 01:45 Miscellaneous (Patient's Own Oral Contraceptive) 1 ea PO HS GIOVANA Stop: 08/03/19 21:59 Last Admin: 07/05/19 21:35 Dose: 1 ea Documented by: Non-Formulary Medication (Non-Formulary Patient's Own Med) 2 ea OP BID PRN PRN Reason: Dryness Stop: 08/03/19 08:59 Last Admin: 07/04/19 18:59 Dose: 2 ea Documented by: Pantoprazole Sodium (Protonix) 40 mg PO DAILY GIOVANA Stop: 08/03/19 09:44 Last Admin: 07/06/19 08:23 Dose: 40 mg Documented by: Prednisone (Prednisone) 40 mg PO DAILY@0730 GIOVANA Stop: 08/04/19 07:29 Last Admin: 07/06/19 08:21 Dose: 40 mg Documented by: Propranolol HCl (Inderal) 20 mg PO BID GIOVANA Stop: 08/03/19 02:18 Last Admin: 07/06/19 08:21 Dose: 20 mg Documented by: Sodium Chloride ([place] Nasal) 1 - 2 sprays NA PRN PRN PRN Reason: Nasal Dryness/Congestion Stop: 08/03/19 01:45 Vitamin D (Vitamin D3) 5,000 units PO DAILY GIOVANA Stop: 08/04/19 08:59 Last Admin: 07/06/19 08:23 Dose: 5,000 units Documented by: Mental Health & Subst Abuse Tx Psychiatrist Name of Psychiatrist: [facility] Psychiatrist's Date of Appointment with Psychiatrist: 07/28/19 Time of Appointment with Psychiatrist: 9:30 a.m. Psychiatric Appointment Comment: [id number] [facility] Therapist Name of Therapist: Dr. Mavis Damico Therapist's Date of Therapist Appointment: 07/09/19 Time of Therapist Appointment: 6:30 p.m. (Able to give you a sooner appt than your normal standing) Therapy Appointment Comment: Teletherapy Pointer Helper Name of Pointer Helper: . Post Discharge Appointments Primary Care Physician Name Of Family Doctor: [facility] - Dr. Garcia Primary Care Date of Appointment with PCP: 08/06/19 Time of Appointment with PCP: 2:10 p.m. Provider Appointment Comment: [address] [facility], [address] Neurologist Name of Neurologist: COLIN Lozano Neurologist's Date of Appointment with Neurologist: 08/12/19 Time of Appointment with Neurologist: 2:30 p.m. Neurology Appointment Comment: [id number] [facility] Contact Information Discharge Discharge Address: [address] [place] [address], [place] [address] (1) Depression Active/Remission status: currently active Depression Type: major depressive disorder Major depression episode severity: severe Major depression recurrence: recurrent Psychotic features: without psychotic features Qualified Code(s): F33.2 - Major depressive disorder, recurrent severe without psychotic features
[2019-07-06] MEDS: NON-FORMULARY PATIENT'S OWN MED OP PRN (09:51)
[2019-07-06] MEDS: CIPROFLOXACIN 250 MG TAB PO SCH ×2 (10:29→21:35)
[2019-07-06 12:17] LABS: Pregnancy Test, Urine Negative (Negative)
[2019-07-06] MEDS: PATIENT'S OWN ORAL CONTRACEPTIVE PO SCH (21:35)
[2019-07-07] MEDS ORDERED: predniSONE 20 MG TAB PO SCH (07:30)
[2019-07-07 08:20] LABS: Estimated Average Glucose 114 mg/dl; Hemoglobin A1C 5.6 % (4.5-5.6)
[2019-07-07] MEDS: ESCITALOPRAM OXALATE 20 MG TAB PO SCH (08:24)
[2019-07-07] MEDS: PANTOprazole 40 MG TAB PO SCH (08:24)
[2019-07-07] MEDS: OMEGA-3 (PURIFIED FISH OIL) 1 GM CAP PO SCH (08:24)
[2019-07-07] MEDS: PROPRANOLOL HCL 20 MG TAB PO SCH ×2 (08:24→21:17)
[2019-07-07] MEDS: CALCIUM CARBONATE 1250MG TAB PO SCH (08:24)
[2019-07-07] MEDS: CHOLECALCIFEROL 1,000 UNITS 25 MCG TAB PO SCH (08:24)
[2019-07-07] MEDS: CIPROFLOXACIN 250 MG TAB PO SCH ×2 (08:24→21:18)
--- NOTE | 2019-07-07 11:16 | Psychiatric Progress Note ---
Date of Service July 07, 2019 Impression / Recommendations Impression 8-year-old female admitted voluntarily for inpatient psychiatric treatment due to worsening anxiety, hopelessness, and reported increase in mood instability (anger, irritability) over the past week - reporting SI while in the ED. In the context of difficulty coping with a recent neurosarcoidosis diagnosis, she felt she was unsafe outside of the inpatient psychiatric setting to deal with these symptoms on her own. Specifically, patient was encouraged to present to the ED after a scheduled therapy (tele-therapy) appointment the evening of her eventual admission. 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 Pt was agreeable with continuing her home psychiatric medication regimen - escitalopram 20mg daily with as needed use of hydroxyzine for anxiety/insomnia. Potential to initiate a mood stabilization agent was discussed at admission, as a possible adjunct to her antidepressant if irritability and mood instability should persist; specifically lamotrigine reviewed. Pt has been denying active SI, but has been benefiting from group programming and staff encouragement in order to better cope with her physical symptoms. Will focus treatment on therapeutic intervention at present, and work with patient to develop and safe discharge plan. Until this can be accomplished, inpatient psychiatric treatment is the least restrictive and most appropriate setting to work toward these goals. (1) Suicidal thoughts: 07/03 - Admitted to a locked inpatient behavioral health unit, on q15 minute safety checks - Encourage medication initiation/adjustments as indicated - Encourage participation in group and recreational therapies - Gather collateral information from outpatient providers - Suggest family meeting to involve outpatient supports in safety planning - Arrange appropriate aftercare 07/04--thoughts lessening, continue 15 min checks 07/06 - Denies SI, but reports concern today as her physical symptoms are worse - feeling this has potential to greatly impact her emotional state (2) Anxiety: 07/03 - Pt admits to anxiety, likely significantly exacerbated by concerns surrounding the COVID-19 outbreak and her chronic neurological illness - Pt reporting worsening of anxiety and depression over the last week which has been contributing to hopelessness and passive thoughts - Pt agreeable with this visit offering primarily therapeutic intervention - as she admits that most of her present stressors are situational and have only been occurring for the past week - Will continue escitalopram 20mg daily and prn hydroxyzine; will schedule HS hydroxyzine as patient reports this is how she has been taking it at home - Will encourage attendance of group and recreational programming; encourage 1:1 sessions as desired/indicated to process recent stressors - Discussed need to develop a daily/weekly routine that will help support the patient during this time of working from home - Coordinate with outpatient therapist; confirm [facility] intake for July - pt stating she had to reschedule this appointment due to prioritizing her MRI yesterday - Encourage patient to work on a detailed safety plan - Family meeting to involve outpatient supports in discharge and safety planning 07/05--discussed need to determine work schedule or time off as part of safety plan 07/06 - Reports improvement in anxiety and stress management with encouragement from staff and participation in group programming - Family meeting held with boyfriend via phone on 07/03 - Pt continues to focus on ways to implement structure and routine into her day while working from home - Aftercare appointments confirmed (3) Depression: 07/03 - Pt admits to worsening of depressive symptoms and more chronic hopelessness in the last week - see treatment recommendations for "anxiety" as above - Continue escitalopram 20mg daily; pt does report noticeably decreased libido in the past 2-3 weeks - she was asked to continue to monitor - We did discuss her mood fluctuations. Will not plan to initiate a new medication presently, as these changes have only been persisting for the past week. We did discuss the possibility of lamotrigine or alternative mood stabilization agent as an adjunct to her depression treatment regimen if irrit ability/anger, and mood fluctuations in the setting of her depressive episodes should persist. Would highly recommending coordinating this treatment plan with her neurologist prior to initiating an antiepileptics as a mood stabilizer. - Continue to encourage group and recreational programming, as well as development of healthy and effective coping strategies 07/05--mood shifts and low mood as well as several somatic complaints seem related to peak of steroid dosing for day. Suggested possible trial of split dosing. Will give 20 mg Prednisone in am and have rounder for 07/06 reassess. 07/06 - As above, patient remains agreeable with BID dosing of prednisone. 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 (5) Essential tremor: 07/03 - Continue propranolol 20mg BID - Most recent neurology progress note indicates patient may take an addit ional 20mg dose once daily as needed for breakthrough tremor 07/06 - Pt reporting improvement in hand tremor today, continue BID dosing of prednisone at this time with further re-evaluation by her neurologist on an outpatient basis (6) UTI (urinary tract infection): 07/03 - Pt presents with abnormal UA in ED (1+ glucose, 1+ leukocyte esterase, 5-10 WBC, 5-10 RBC, 20-30 epithelial cells, and 2+ bacteria) - Preliminary urine culture positive for streptococcus species - sensitivities to follow - Pt reporting she is asymptomatic when symptoms of UTI were reviewed - Aware that we can treat her UTI with course of antibiotics should symptoms arise; patient declining initiating course of antibiotics presently 07/05 - UC grew enterococcus senstitive to cipro and other agents, agreed to 250 mg bidX3 days when confirmed allergies. Confirmed LMP early June, urine preg added as generally done on admission. Risk Factors Assessment Male: No : Yes Do You Have Access To A Gun?: No Health Problems: Yes Mental Health Diagnoses: Yes Substance Use Disorders: No Previous Psychiatric Hospitalization: Yes Hopelessness: Yes Smoker: No Protective Factors Assessment Yarsanism Beliefs: Yes : No Responsible for Young Children: No Employed: Yes ([employer]) Stable Relationships: Yes Supportive Family: Yes Good Rapport with Provider: Yes Interval History Identifying Information RUBA CHOWDARY is a 38-year-old F who currently lives in [place] with her boyfriend. Pt was admitted to our unit from 06/01/2019 - 06/05/2019 for depression/SI with plan to cut her wrists. Pt has a history of recurrent depression, and was admitted on 07/04/19 00:56 on a 201 voluntary commitment for increased anxiety, depression, hopelessness, and reported suicidal ideation. Chief Complaint "Emotionally, I'm calm. But physically, I'm having a lot more difficulty today." Review of Systems Notes Constitutional: reports improvement in heat intolerance this morning HEENT: report mild pain and dryness in right eye; vision as though "I am looking through a cloud" Cardiovascular: denied Respiratory: denied Gastrointestinal: denied Neurological: reports improvement in hand tremor today Psychiatric: denies symptoms other than stated above Total of at least 10 systems reviewed, pertinent positives as above and in HPI. Sleep Information Total Hours of Sleep: 6.5 Sleep Comments: pt on q-15 minute checks Meal Information Percent Meal Consumed - Breakfast: 100 Percent Meal Consumed - Lunch: 100 Percent Meal Consumed - Dinner: 90 Subjective Subjective Patient was seen & assessed and interval progress reviewed with treatment team. Staff report the patient has been in good behavioral control, without emotionally outbursts during this admission. Pt's aftercare appointments have been scheduled. She participated in a phone meeting with her boyfriend on 07/03. Pt was seen today to assess progress since admission. We reviewed estimated length of stay, with potential for discharge if patient should desire. Pt states that while "emotionally, I feel calm", she is concerned that she is not feeling as well physically today, and does not feel safe with the idea of discharge home in this state. Pt states that the weekend overall was "actually, pretty good." She states she was able to return to some favorite hobbies, specifically writing. We discussed ways patient can utilize these hobbies as "breaks" in her work-day at home, to encourage structure and ongoing productivity during these changes at work. Pt states that while some of her physical symptoms are exacerbated today (eye dryness/pain, and back pain), she is also noticing some improvements (no heat intolerance this morning, reduced severity of hand tremor). Pt continues to report desire for divided doses of prednisone - with plan discussed to have second dose of 20mg offered around lunchtime. Pt denies SI at this time, but states the uncertainty surrounding her worsening outlook on her physical state this morning is increasing concern for discharge home. She believes tomorrow would be most appropriate, but denies other specific needs or concerns at this time. Physical Exam Psychiatric Orientation: alert, oriented x 3 and cooperative (and pleasant) Apperance: appropriately dressed, appropriately groomed (hair appearing somewhat unkempt) and appeared stated age Eye Contact: good eye contact Motor Behavior: steady gait and station and no abnormal motor movements Speech: normal rate/rhythm/volume of speech Affect: euthymic affect and mood congruent with affect Mood: no anxious mood ("Emotionally, I'm feeling calm") Thought Process: goal directed thought process, clear/coherent thought process and thought association intact Thought Content: + preoccupation (remains preoccupied with physical symptoms of her neurologic disorder) and reality based without delusions; no hopelessness Suicidal Thoughts: denies suicidal thoughts and denies suicidal intent Homicidal Thoughts: denies homicidal thoughts Hallucinations: no auditory hallucinations and no visual hallucinations Cognition: attention grossly intact and language grossly intact Insight: + fair insight Judgement: + fair judgement Vital Signs (Past 24 Hours) Last Vital Signs Temp 36.7 C 07/07/19 06:55 Pulse 77 07/07/19 06:56 Resp 18 07/07/19 06:55 BP 115/80 07/07/19 06:56 Pulse Ox 99 07/04/19 01:36 Results & Data ([facility]) Laboratory Results Laboratory Results - last 24 hr 07/06/19 07/07/19 12:05 07:32 Estimat Average Glucose 114 Hemoglobin A1c 5.6 Urine Test Negative Current Inpatient Medications Current Inpatient Medications: Current Inpatient Medications Acetaminophen (Tylenol) 650 mg PO Q4H PRN PRN Reason: Headache or Minor Fever Stop: 08/03/19 01:45 Al Hydrox/Mg Hydrox/Simethicone (Maalox) 30 ml PO Q4H PRN PRN Reason: GI Upset Stop: 08/03/19 01:45 Bismuth Subsalicylate (Kaopectate) 15 ml PO PRN PRN PRN Reason: Loose Stool Stop: 08/03/19 01:45 Calcium Carbonate (Os-Deion 500) 1,250 mg PO DAILY [facility] Stop: 08/03/19 09:44 Last Admin: 07/07/19 08:24 Dose: 1,250 mg Documented by: Ciprofloxacin (Cipro) 250 mg PO Q12 [facility] Stop: 07/11/19 10:14 Last Admin: 07/07/19 08:24 Dose: 250 mg Documented by: Cyanocobalamin (Vitamin B-12) 1,000 mcg PO DAILY PRN PRN Reason: PATIENT REQUEST Stop: 08/03/19 10:16 Escitalopram Oxalate (Lexapro Tab) 20 mg PO QAM [facility] Stop: 08/03/19 09:44 Last Admin: 07/07/19 08:24 Dose: 20 mg Documented by: Fish Oil (Palmer-3 (Purified Fish Oil)) 1 gm PO DAILY [facility] Stop: 08/04/19 08:59 Last Admin: 07/07/19 08:24 Dose: 1 gm Documented by: Hydroxyzine HCl (Vistaril) 50 mg PO HSZ PRN PRN Reason: Insomnia Stop: 08/03/19 01:45 Last Admin: 07/06/19 21:39 Dose: 50 mg Documented by: Hydroxyzine HCl (Vistaril) 25 mg PO Q4H PRN PRN Reason: Anxiety Stop: 08/03/19 01:45 Magnesium Hydroxide (Milk Of Magnesia) 30 ml PO DAILY PRN PRN Reason: Constipation Stop: 08/03/19 01:45 Miscellaneous (Patient's Own Oral Contraceptive) 1 ea PO HS [facility] Stop: 08/03/19 21:59 Last Admin: 07/06/19 21:35 Dose: 1 ea Documented by: Non-Formulary Medication (Non-Formulary Patient's Own Med) 2 ea OP BID PRN PRN Reason: Dryness Stop: 08/03/19 08:59 Last Admin: 07/06/19 09:51 Dose: 2 ea Documented by: Pantoprazole Sodium (Protonix) 40 mg PO DAILY [facility] Stop: 08/03/19 09:44 Last Admin: 07/07/19 08:24 Dose: 40 mg Documented by: Prednisone (Prednisone) 20 mg PO DAILY@0730 [facility] Stop: 08/06/19 07:29 Last Admin: 07/07/19 07:53 Dose: 20 mg Documented by: Propranolol HCl (Inderal) 20 mg PO BID [facility] Stop: 08/03/19 02:18 Last Admin: 07/07/19 08:24 Dose: 20 mg Documented by: Sodium Chloride (Gentry Nasal) 1 - 2 sprays NA PRN PRN PRN Reason: Nasal Dryness/Congestion Stop: 08/03/19 01:45 Vitamin D (Vitamin D3) 5,000 units PO DAILY [facility] Stop: 08/04/19 08:59 Last Admin: 07/07/19 08:24 Dose: 5,000 units Documented by: Mental Health & Subst Abuse Tx Psychiatrist Name of Psychiatrist: Ravindra Cruz Psychiatrist's Date of Appointment with Psychiatrist: 07/28/19 Time of Appointment with Psychiatrist: 9:30 a.m. Psychiatric Appointment Comment: [address] [facility] Therapist Name of Therapist: Dr. Mavis Damico Therapist's Date of Therapist Appointment: 07/09/19 Time of Therapist Appointment: 6:30 p.m. (Able to give you a sooner appt than your normal standing) Therapy Appointment Comment: Teletherapy Japanese Interpreter Name of Japanese Interpreter: . Post Discharge Appointments Primary Care Physician Name Of Family Doctor: [facility] - Dr. Garcia Primary Care Date of Appointment with PCP: 08/06/19 Time of Appointment with PCP: 2:10 p.m. Provider Appointment Comment: [address] [facility], [address] Neurologist Name of Neurologist: [facility] - Dr. Lozano Neurologist's Date of Appointment with Neurologist: 08/12/19 Time of Appointment with Neurologist: 2:30 p.m. Neurology Appointment Comment: [address] [facility] Other #1: Name of Aftercare Appointment: [facility] - Dr. Griffiths Phone Number of Aftercare Appointment: [phone] Aftercare Appointment Comment: [address] [facility] Contact Information Discharge Discharge Address: [address] [place] [address], [place] [address] (1) Depression Active/Remission status: currently active Depression Type: major depressive disorder Major depression episode severity: severe Major depression recurrence: recurrent Psychotic features: without psychotic features Qualified Code(s): F33.2 - Major depressive disorder, recurrent severe without psychotic features
[2019-07-07] MEDS: predniSONE 20 MG TAB PO SCH (12:21)
[2019-07-07] MEDS: PATIENT'S OWN ORAL CONTRACEPTIVE PO SCH (21:17)
[2019-07-08 06:46] VITALS: TEMP 98.4
[2019-07-08] MEDS: predniSONE 20 MG TAB PO SCH ×2 (08:18→12:20)
[2019-07-08] MEDS: CIPROFLOXACIN 250 MG TAB PO SCH (08:18)
[2019-07-08] MEDS: PROPRANOLOL HCL 20 MG TAB PO SCH (08:19)
[2019-07-08] MEDS: ESCITALOPRAM OXALATE 20 MG TAB PO SCH (08:19)
[2019-07-08] MEDS: CALCIUM CARBONATE 1250MG TAB PO SCH (08:20)
[2019-07-08] MEDS: OMEGA-3 (PURIFIED FISH OIL) 1 GM CAP PO SCH (08:20)
[2019-07-08] MEDS: CHOLECALCIFEROL 1,000 UNITS 25 MCG TAB PO SCH (08:20)
[2019-07-08] MEDS: PANTOprazole 40 MG TAB PO SCH (08:20)
--- NOTE | 2019-07-08 09:24 | Discharge Summary ---
Date of Service July 08, 2019 History of Present Illness Frida Villeda is a 38-year-old female admitted voluntarily for inpatient psychiatric treatment on 07/04/2019 after presenting to the ED upon recommendation from her outpatient therapist and several other members of her healthcare team. Patient's boyfriend had actually called our unit the afternoon prior to admission seeking advice, as he stated the patient had been deteriorating and that she was trying to refuse prescribed medications and becoming more agitated and hopeless. Safety recommendations were reviewed with the boyfriend at that time. Pt states that the boyfriend called several of her other providers, who suggested the patient present to the ED for mental health evaluation. Pt did participate in her scheduled therapy session (via tele- therapy) and inpatient admission was suggested at the closing of that session. Pt reported depression and "anger issues" in the ED, admitting to increased hopelessness and suicidality. 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 Pt is cooperative with psychiatric evaluation, and surprisingly states that thing have been going rather well overall for her. She states that, with appropriate treatment, her symptoms related to her diagnosis of neurosarcoidosis have been improving and she has been rather optimistic about her physical health recently. She has been able to go to work several days out of the week, and was otherwise able to be productive working from home. She states that she and her boyfriend have been walking and the patient has been doing regular yoga - noticing a considerable decrease in physical pain. Pt states that all of these improves are only increasing her confusion as to why her mood has been inconsistent recently. Pt states "everything has been going so well, but what I'm experiencing now is anger. I don't know where it is coming from or why." Pt states that she has been getting into more fights with her boyfriend and has been "saying just terrible things to the people I care about, this is so unlike me." While patient admits that a part of her increased anger may be related to chronic steroid treatment, it is beyond her usual level of irritability. In addition, patient reports increased depression and feelings of hopelessness. Pt states her predominant mood is "depression I'd say."" She states that she has rather chronic thoughts of "I just want to ." In discussing with this provider, patient states that her suicidality has been passive - "like I wish I would get run over by a car, or that my boyfriend would stab me." She denies any intent to end her life of her own accord, but has been making statements to her supports of "I want to " and "please just kill me" - which increased their concern as well. Pt states "I feel like a lot of this is a chemical thing, because I have so little control of it." Pt was able to reflect a bit on changes over the past week. She is able to admit that the recent changes to her work schedule, and life in general, since the recent COVID-19 outbreak may be playing a larger role that she initially realized. 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 She states that being out of her routine has contributed to her sleeping more and having less desire to focus on work. The anxiety of her being on chronic immunosuppressants during a virus outbreak has also be contributing to her changes in mood, per her report. Pt does admit that she is hopeful for additional coping skills and would be willing to develop a routine for the period of time both she and her boyfriend will be working from home. Pt continues to maintain that her current mood fluctuations are "not anything I've ever experienced." She continues to deny symptoms more consistent with a bipolar presentation. Pt does admit she is concerned about making significant adjustments to her medications, and feel a therapy-focused visit is most necessary at this time to allow her to feel safe returning home. Physical Exam Psychiatric Orientation: alert, oriented x 3 and cooperative (and pleasant) Apperance: appropriately dressed, appropriately groomed and appeared stated age Eye Contact: good eye contact Motor Behavior: steady gait and station and no abnormal motor movements Speech: normal rate/rhythm/volume of speech Affect: euthymic affect and mood congruent with affect Mood: no depressed mood and no anxious mood Thought Process: goal directed thought process, clear/coherent thought process and thought association intact Thought Content: + preoccupation (with ongoing neurological symptoms) and reality based without delusions; no hopelessness Suicidal Thoughts: denies suicidal thoughts and denies suicidal intent Homicidal Thoughts: denies homicidal thoughts Hallucinations: no auditory hallucinations and no visual hallucinations Cognition: attention grossly intact and language grossly intact Insight: + fair insight Judgement: + fair judgement Vital Signs (Past 24 Hours) Last Vital Signs Temp 36.9 C 07/08/19 06:45 Pulse 83 07/08/19 06:45 Resp 18 07/08/19 06:45 BP 125/85 07/08/19 06:45 Pulse Ox 99 07/04/19 01:36 Principal Diagnosis - Anxiety - Depression - Neurosarcoidosis Psychiatric Data 38-year-old female admitted voluntarily for inpatient psychiatric treatment due to worsening anxiety, hopelessness, and reported increase in mood instability (anger, irritability), and reported suicidality over the past week. Pt was admitted to our unit from 06/01/2019 - 06/05/2019 for similar concerns, with specific plan to cut her wrists. In the context of difficulty coping with a recent neurosarcoidosis diagnosis, pt reported she felt she was unsafe to deal with these symptoms on her own outside of the inpatient psychiatric setting. Pt and boyfriend reportedly sought advice from her outpatient providers, who had suggested patient present for mental health evaluation. More specifically, patient was encouraged to present to the ED after a scheduled therapy (tele- therapy) appointment the evening of her eventual admission. Pt did report that a great deal of her heightened anxiety and mood instability was likely related to recent events concerning the COVID-19 outbreak. 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 Pt's home medications were unchanged during her admission, and she was continued on escitalopram 20mg as she felt this medication had been effective. She did report recent sexual side effects, but was agreeable with continuing the medication at this time. Treatment options to target decreased libido down the road were discussed should these symptoms persist. Pt verbalized desire to continue hydroxyzine as needed for anxiety, and scheduled for sleep. The future consideration to initiate a mood stabilization agent was discussed, with consideration to utilize as an adjunct to her antidepressant if irritability and mood instability should persist; however, it was recommended that we wait on this until the pattern of these moods can be better observed. Lamotrigine was specifically discussed, though suggest coordination with neurology prior to initiation. Over the course of her hospitalization, patient participated appropriately with group and recreational programming. She permitted involvement of her boyfriend in a phone meeting to discuss safety and discharge planning. She was assisted with development of healthy and effective coping strategies. Pt was able to report resolution of SI during her hospitalization and maintained this report for the remainder of her stay. Pt completed a written safety plan prior to discharge and verbalized understanding of how to utilize this plan moving forward. Based on review of patient's case and their current presentation, risk of harm to self or others is no longer perceived to be acute. Management of symptoms on an outpatient basis seems the most appropriate and least restrictive setting. Pt seems appropriate for discharge with recommendation for consistent follow-up with outpatient psychiatric prescriber and therapist. Pt verbalized understanding of discharge plan reviewed and is agreeable with plan to be discharged home today. Day of Discharge Assessment Patient's case was reviewed and discussed during morning report with supervising psychiatrist, nursing, and social work. Staff report the patient has continued to engage appropriately in group programming. She is reportedly requesting discharge today. Pt was seen today to assess readiness for discharge. Pt stat es that she is feeling much better physically this morning, stating her only present concern is related to her "darkened vision" and her eyes feeling fatigued. Pt states that she is not noticing any tremor of her hands today and felt that she tolerated the adjustment to her prednisone dosing yesterday. Pt continues to state that emotionally she is feeling "calm" and is denying symptoms of anxiety and depression. Pt denies SI today. Pt states that she has been discussing her discharge plans with her boyfriend, who is planning to pick her up this afternoon. Pt did complete a safety plan prior to discharge, and is able to discuss these warning signs and coping skills with this provider. Pt reports feeling as though her treatment goals have been met, and she is requesting discharge home today. Pt participated in review of discharge medications, and denied any questions or discrepancies. Pt is agreeable with discharge home today. ROS: Constitutional: denied HEENT: reports fatigue of eyes and "darkened vision" Cardiovascular: denied Respiratory: denied Gastrointestinal: denied Neurological: denies changes Psychiatric: denies symptoms other than stated above Total of at least 10 systems reviewed, pertinent positives as above and in HPI. Transition of Care Transition Of Care Record: was reviewed with the patient Advance Directives Advance Directives Information Provided: Yes Advance Directives: No Mental Health Advance Directive: No Living Will: No Power of Circuit Breaker Supervisor: No Advance Directives Reason:: Declines as Mental Health Visit. Risk Factors Assessment Presenting risk factors reviewed on discharge. Precipitating stressors mitigated by: admission for inpatient psychiatric observation and treatment, attendance of therapeutic treatment groups, development of healthy and effective coping strategies, involvement of outpatient supports, completion of a safety plan, confirmation of guns and weapons being secured, discussion regarding substance abuse and effects on mental health diagnoses, treatment of medical conditions and education on diagnoses. Pt has demonstrated improvement in condition with regard to improvement in mood, resolution of SI with reported ability to contract for safety, development of healthy and effective coping strategies, and involvement of outpatient supports in discussion regarding safety and discharge planning. At this time, patient is requesting discharge and is no longer considered to be at acute risk of harm to herself or others. Pt will be discharged with recommendation for ongoing outpatient psychiatric treatment. Pt is at increased long-term risk of self-harm when compared with the general population, primarily related to her her recent diagnosis of neurosarcoidosis and ongoing neurologic symptoms. Male: No : Yes Do You Have Access To A Gun?: No Health Problems: Yes Mental Health Diagnoses: Yes Substance Use Disorders: No Previous Psychiatric Hospitalization: Yes Hopelessness: Yes Smoker: No Protective Factors Assessment Moravian Beliefs: Yes : No Responsible for Young Children: No Employed: Yes ([employer]) Stable Relationships: Yes Supportive Family: Yes Good Rapport with Provider: Yes Tobacco Cessation at Discharge Tobacco Cessation Medication Prescribed at Discharge: Not Applicable/Non-Smoker Total Time Total Time Spent: Greater Than 30 Minutes Total Time Includes: Examination of the patient, Discharge Planning, Medication Reconciliation and Communication with other providers Discharge Data Lab Results 07/03/19 07/03/19 07/03/19 20:57 20:57 20:57 WBC RBC Hgb Hct MCV MCH MCHC RDW Std Deviation RDW Coeff of Sharon Plt Count MPV Immature Gran % (Auto) Neut % (Auto) Lymph % (Auto) [place] % (Auto) Eos % (Auto) Baso % (Auto) Immature Gran # (Auto) Neut # (Auto) Lymph # (Auto) Chester # (Auto) Eos # (Auto) Baso # (Auto) Sodium Potassium Chloride Carbon Dioxide Anion Gap BUN Creatinine Est Cr Clr Drug Dosing Est GFR ( Amer) Est GFR (Non-Af Amer) BUN/Creatinine Ratio Glucose Estimat Average Glucose Hemoglobin A1c Calcium Total Bilirubin AST ALT Alkaline Phosphatase Total Protein Albumin Globulin Albumin/Globulin Ratio TSH Specimen Hemolysis Urine Color Yellow Urine Appearance Clear Urine pH 6.5 Ur Specific [place] 1.019 Urine Protein Negative Urine Glucose (UA) 1+ H Urine Ketones Negative Urine Blood Negative Urine Nitrite Negative Urine Bilirubin Negative Urine Urobilinogen Negative Ur Leukocyte Esterase 1+ H Urine WBC (Auto) 5-10 H Urine RBC (Auto) 5-10 H U Hyaline Cast (Auto) 1-5 U Epithel Cells (Auto) 20-30 H Urine Bacteria (Auto) 2+ H Urine Test Salicylates Urine Opiates Screen Neg Ur Methadone, Qual Neg Acetaminophen Urine Barbiturates Neg Ur Phencyclidine (PCP) Neg U Amphetamin/Meth Scrn Neg MDMA (Ecstasy) Screen Neg U Benzodiazepines Scrn Neg Ur Cocaine Metabolite Neg U Marijuana (THC) Screen Pos H U Marijuana THC Carboxy 41 H Drug Screen Comment SEE NOTE Ethyl Alcohol mg/dL 07/03/19 07/03/19 07/03/19 21:17 21:17 21:17 WBC 9.66 RBC 4.26 Hgb 13.4 Hct 40.0 MCV 93.9 MCH 31.5 MCHC 33.5 RDW Std Deviation 46.1 RDW Coeff of Sharon 13.5 Plt Count 234 MPV 9.7 Immature Gran % (Auto) 0.4 Neut % (Auto) 79.7 Lymph % (Auto) 14.2 Chester % (Auto) 5.5 Eos % (Auto) 0.0 Baso % (Auto) 0.2 Immature Gran # (Auto) 0.04 H Neut # (Auto) 7.70 H Lymph # (Auto) 1.37 Chester # (Auto) 0.53 Eos # (Auto) 0.00 Baso # (Auto) 0.02 Sodium 137 Potassium 4.0 Chloride 103 Carbon Dioxide 27 Anion Gap 7.0 BUN 17 Creatinine 0.85 Est Cr Clr Drug Dosing 76.5 Est GFR ( Amer) 102.2 Est GFR (Non-Af Amer) 88.2 BUN/Creatinine Ratio 19.9 Glucose 128 H Estimat Average Glucose Hemoglobin A1c Calcium 9.3 Total Bilirubin 0.3 AST 23 ALT 47 Alkaline Phosphatase 49 Total Protein 7.7 Albumin 3.7 Globulin 4.0 Albumin/Globulin Ratio 0.9 TSH 0.305 Specimen Hemolysis Urine Color Urine Appearance Urine pH Ur Specific [place] Urine Protein Urine Glucose (UA) Urine Ketones Urine Blood Urine Nitrite Urine Bilirubin Urine Urobilinogen Ur Leukocyte Esterase Urine WBC (Auto) Urine RBC (Auto) U Hyaline Cast (Auto) U Epithel Cells (Auto) Urine Bacteria (Auto) Urine Test Salicylates < 1.7 L Urine Opiates Screen Ur Methadone, Qual Acetaminophen < 2 L Urine Barbiturates Ur Phencyclidine (PCP) U Amphetamin/Meth Scrn MDMA (Ecstasy) Screen U Benzodiazepines Scrn Ur Cocaine Metabolite U Marijuana (THC) Screen U Marijuana THC Carboxy Drug Screen Comment Ethyl Alcohol mg/dL 07/03/19 07/06/19 07/07/19 21:17 12:05 07:32 WBC RBC Hgb Hct MCV MCH MCHC RDW Std Deviation RDW Coeff of Sharon Plt Count MPV Immature Gran % (Auto) Neut % (Auto) Lymph % (Auto) [place] % (Auto) Eos % (Auto) Baso % (Auto) Immature Gran # (Auto) Neut # (Auto) Lymph # (Auto) [place] # (Auto) Eos # (Auto) Baso # (Auto) Sodium Potassium Chloride Carbon Dioxide Anion Gap BUN Creatinine Est Cr Clr Drug Dosing Est GFR ( Amer) Est GFR (Non-Af Amer) BUN/Creatinine Ratio Glucose Estimat Average Glucose 114 Hemoglobin A1c 5.6 Calcium Total Bilirubin AST ALT Alkaline Phosphatase Total Protein Albumin Globulin Albumin/Globulin Ratio TSH Specimen Hemolysis Urine Color Urine Appearance Urine pH Ur Specific [place] Urine Protein Urine Glucose (UA) Urine Ketones Urine Blood Urine Nitrite Urine Bilirubin Urine Urobilinogen Ur Leukocyte Esterase Urine WBC (Auto) Urine RBC (Auto) U Hyaline Cast (Auto) U Epithel Cells (Auto) Urine Bacteria (Auto) Urine Test Negative Salicylates Urine Opiates Screen Ur Methadone, Qual Acetaminophen Urine Barbiturates Ur Phencyclidine (PCP) U Amphetamin/Meth Scrn MDMA (Ecstasy) Screen U Benzodiazepines Scrn Ur Cocaine Metabolite U Marijuana (THC) Screen U Marijuana THC Carboxy Drug Screen Comment Ethyl Alcohol mg/dL < 3.0 Hospital Course (1) Suicidal thoughts: 07/03 - Admitted to a locked inpatient behavioral health unit, on q15 minute safety checks - Encourage medication initiation/adjustments as indicated - Encourage participation in group and recreational therapies - Gather collateral information from outpatient providers - Suggest family meeting to involve outpatient supports in safety planning - Arrange appropriate aftercare 07/04--thoughts lessening, continue 15 min checks 07/06 - Denies SI, but reports concern today as her physical symptoms are worse - feeling this has potential to greatly impact her emotional state (2) Anxiety: 07/03 - Pt admits to anxiety, likely significantly exacerbated by concerns surrounding the COVID-19 outbreak and her chronic neurological illness - Pt reporting worsening of anxiety and depression over the last week which has been contributing to hopelessness and passive thoughts - Pt agreeable with this visit offering primarily therapeutic intervention - as she admits that most of her present stressors are situational and have only been occurring for the past week - Will continue escitalopram 20mg daily and prn hydroxyzine; will schedule HS hydroxyzine as patient reports this is how she has been taking it at home - Will encourage attendance of group and recreational programming; encourage 1:1 sessions as desired/indicated to process recent stressors - Discussed need to develop a daily/weekly routine that will help support the patient during this time of working from home - Coordinate with outpatient therapist; confirm [facility] intake for July - pt stating she had to reschedule this appointment due to prioritizing her MRI yesterday - Encourage patient to work on a detailed safety plan - Family meeting to involve outpatient supports in discharge and safety planning 07/05--discussed need to determine work schedule or time off as part of safety plan 07/06 - Reports improvement in anxiety and stress management with encouragement from staff and participation in group programming - Family meeting held with boyfriend via phone on 07/03 - Pt continues to focus on ways to implement structure and routine into her day while working from home - Aftercare appointments confirmed (3) Depression: 07/03 - Pt admits to worsening of depressive symptoms and more chronic hopelessness in the last week - see treatment recommendations for "anxiety" as above - Continue escitalopram 20mg daily; pt does report noticeably decreased libido in the past 2-3 weeks - she was asked to continue to monitor - We did discuss her mood fluctuations. Will not plan to initiate a new medication presently, as these changes have only been persisting for the past week. We did discuss the possibility of lamotrigine or alternative mood stabilization agent as an adjunct to her depression treatment regimen if irritability/anger, and mood fluctuations in the setting of her depressive episodes should persist. Would highly recommending coordinating this treatment plan with her neurologist prior to initiating an antiepileptics as a mood stabilizer. - Continue to encourage group and recreational programming, as well as development of healthy and effective coping strategies 07/05--mood shifts and low mood as well as several somatic complaints seem related to peak of steroid dosing for day. Suggested possible trial of split dosing. Will give 20 mg Prednisone in am and have rounder for 07/06 reassess. 07/06 - As above, patient remains agreeable with BID dosing of prednisone. 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 (5) Essential tremor: 07/03 - Continue propranolol 20mg BID - Most recent neurology progress note indicates patient may take an additional 20mg dose once daily as needed for breakthrough tremor 07/06 - Pt reporting improvement in hand tremor today, continue BID dosing of prednisone at this time with further re-evaluation by her neurologist on an outpatient basis (6) UTI (urinary tract infection): 07/03 - Pt presents with abnormal UA in ED (1+ glucose, 1+ leukocyte esterase, 5-10 WBC, 5-10 RBC, 20-30 epithelial cells, and 2+ bacteria) - Preliminary urine culture positive for streptococcus species - sensitivities to follow - Pt reporting she is asymptomatic when symptoms of UTI were reviewed - Aware that we can treat her UTI with course of antibiotics should symptoms arise; patient declining initiating course of antibiotics presently 07/05 - UC grew enterococcus senstitive to cipro and other agents, agreed to 250 mg bidX3 days when confirmed allergies. Confirmed LMP early June, urine preg added as generally done on admission. Mental Health & Subst Abuse Tx Psychiatrist Name of Psychiatrist: [facility] Psych[facility]rist's Date of Appointment with Psychiatrist: 07/28/19 Time of Appointment with Psychiatrist: 9:30 a.m. Psychiatric Appointment Comment: [id number] Psychiatrist Release of Information: Obtained, Reviewed and Signed Therapist Name of Therapist: Dr. Mavis Damico Therapist's Date of Therapist Appointment: 07/09/19 Time of Therapist Appointment: 6:30 p.m. Therapy Appointment Comment: Teletherapy Therapist Release of Information: Obtained, Reviewed and Signed Twenty One Dealer Name of Twenty One Dealer: . Post Discharge Appointments Primary Care Physician Name Of Family Doctor: [facility] - Dr. Garcia Primary Care Date of Appointment with PCP: 08/06/19 Time of Appointment with PCP: 2:10 p.m. Provider Appointment Comment: [id number] [facility], [facility] Primary Care Release of Information: Obtained, Reviewed and Signed Neurologist Name of Neurologist: COLIN Lozano Neurologist's Date of Appointment with Neurologist: 08/12/19 Time of Appointment with Neurologist: 2:30 p.m. Neurology Appointment Comment: [facility] Release of Information for Neurologist: Obtained, Reviewed and Signed Smoking Cessation Counseling Tobacco Cessation Medication Prescribed at Discharge: Not Applicable/Non-Smoker Other #1: Name of Aftercare Appointment: [facility] - Dr. Griffiths Phone Number of Aftercare Appointment: [phone] Aftercare Appointment Comment: [facility] [facility] Release of Information Aftercare Appointment: Obtained, Reviewed and Signed Contact Information Discharge Discharge Address: [address] [place] [id number] Discharge Plan Discharge Items Patient Disposition: Home - Self-Care Reason For Visit: DEPRESSION Discharge Diagnosis: - Anxiety - Depression Activity: Resume your previous activity Non-emergency contact: Primary Care Provider, Neurologist, Psychiatrist and Therapist Call non-emergency contact if: you have any medication questions and your symptoms worsen Follow-up/Referrals: Jayesh Garcia MD [Primary Care Provider] - Diet: Regular and Gluten Free Addtl Attending Provider Instructions: SPECIAL CARE INSTRUCTIONS: 1. Follow through with your scheduled aftercare appointments. If unable to keep an appointment, please call to reschedule. 2. Take your medication only as prescribed. Medication should not be changed or stopped without the approval of your doctor. In the event of worsening symptoms or concerns about side effects, contact your doctor immediately. 3. Utilize new healthy coping skills, anger management skills, and stress management skills learned during your hospitalization. Journal feelings and process them with a support person. Identify stressors or situations that may result in relapse, deterioration or inappropriate behaviors and develop a plan to deal with those issues. 4. If your coping skills are ineffective and you are in crisis, contact your outpatient providers for direction. If unable to reach your providers, please call the CAN HELP LINE AT or go to the closest Emergency Room. 5. Avoid alcohol and un-prescribed drugs. 6. You have been provided with the Mental Health Advance Directives Pamphlet for your review. AFTERCARE APPOINTMENTS: * Please call your insurance company prior to your scheduled appointment to confirm your aftercare providers are covered. Take your insurance information to your appointments. WHO TO CALL AND WHEN: Medical Emergencies: For questions or emergencies related to your hospital stay, please contact the Inpatient Behavioral Health Unit at [phone]. A orthotic/prosthetic clinician is on-call 06/11 for the Behavioral Health Unit for emergencies At any time you feel your situation is an emergency, you may also call 911 immediately. Your Discharge Instructions noted above were prepared by provider Annemarie Avilez PA-C. Pending Studies at Discharge: No Stand-Alone Forms: My [facility], Smoking Cessation, Suicide Prevention Resources Medications and DC Order Prescriptions: New ciprofloxacin HCl 250 mg Tablet 250 mg PO Q12 Qty: 1 RF: 0 prednisone 20 mg Tablet 20 mg PO BID@0730,1230 30 Days Qty: 60 RF: 0 Continued Remicade 100 mg recon soln See Rx Instructions IV ONCE Qty: 3 RF: 7 pantoprazole [Protonix] 20 mg tablet,delayed release (DR/EC) 20 mg PO DAILY Qty: 30 RF: 5 norgestimate-ethinyl estradiol [Tri Femynor] 0.18/0.215/0.25 mg-35 mcg (28) tablet 1 tab PO HS RF: 0 propranolol 20 mg tablet 20 mg PO BID RF: 0 mecobalamin (vitamin B12) 1,000 mcg tablet,disintegrating 1,000 mcg SL DIRECTED RF: 0 cholecalciferol (vitamin D3) [Vitamin D3] 5,000 unit Tablet 5,000 unit PO DAILY RF: 0 escitalopram oxalate 20 mg Tablet 20 mg PO QAM 30 Days Qty: 30 RF: 0 hydroxyzine HCl 50 mg tablet 50 mg PO HS PRN (Reason: insomnia) 30 Days Qty: 30 RF: 0 calcium carbonate [Calcium 500] 500 mg calcium (1,250 mg) Tablet 500 mg PO DAILY RF: 0 hydroxyzine HCl 25 mg Tablet 25 mg PO DAILY PRN (Reason: mood swings) RF: 0 omega 7-ocw-kxe-fish oil [Fish Oil] 1,000 mg (120 mg-180 mg) Capsule 1 cap PO DAILY RF: 0 Discontinued prednisone 10 mg tablet 40 mg PO DAILY RF: 0 Discharge Orders: Discharge Order (Routine); Ordered 07/08/19 Ordered By: Annemarie Avilez Admission Data Admit Date/Time: 07/04/19 00:56 Attending Provider: Deshaun Hi Admit Provider: Pratibha Moreau Primary Care Provider: Jayesh Garcia Other Interventions: PSY Interdisciplinary Discharge Planning Last Done: 07/08/19 09:02 Coding Level of Care Code 30239 D/C day mgmt > 30 min Diagnoses Suicidal thoughts R45.851 Anxiety F41.9 Depression F33.2 Active/Remission status: currently active Depression Type: major depressive disorder Major depression episode severity: severe Major depression recurrence: recurrent Psychotic features: without psychotic features 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
[2019-07-08 12:31] VITALS: BP 117/83; PULSE 81
== END 2019-07-08 13:00 | disposition home or self-care (01) | DRG 885 ==
LOC: ED 20:26 → 3S 07-04 00:56